=== PATIENT | female | born 1940 | race Caucasian/White ===

== ENCOUNTER 2020-05-21 08:26 | Outpatient (CLI) | payer MEDICARE, SELFPAY | END 2020-05-21 08:27 | disposition home or self-care (01) | LOC: ANHCOVIDVC 08:26 | PROVIDERS: PCP Internal Medicine | DX: Z23 Encounter for immunization (principal) | CPT/HCPCS: 0001A; 91300 ==

== ENCOUNTER 2020-06-11 08:29 | Outpatient (CLI) | payer MEDICARE, SELFPAY | END 2020-06-11 08:30 | disposition home or self-care (01) | LOC: ANHCOVIDVC 08:29 | PROVIDERS: PCP Internal Medicine | DX: Z23 Encounter for immunization (principal) | CPT/HCPCS: 0002A; 91300 ==

== ENCOUNTER 2020-12-31 15:14 | Emergency (ER) | payer MEDICARE, SELFPAY ==
--- NOTE | ~2020-12-31 | CT_ITS ---
EXAMINATION: CT facial & cervical spine wo DATE: 12/31/2020 17:25 INDICATION: Head injury TECHNIQUE: Computed tomography (CT) of the maxillofacial region and cervical spine was performed with out intravenous contrast. The dose-length product (DLP) was 462.34 mGy-cm. Automated exposure control and iterative reconstruction technique were employed. COMPARISON: None FINDINGS: MAXILLOFACIAL CT: There is soft tissue swelling of the frontal scalp. No facial fracture is identified. The globes and orbits are intact. CERVICAL SPINE CT: There is no fracture. There are 2 mm of anterolisthesis of C2 on C3 and C3 on C4. The vertebral body heights are maintained. There is severe loss of intervertebral disc space height from C4-5 through C6 -7. Small degenerative osteophytes project from the anterior endplates of multiple vertebral bodies. The odontoid is intact. There is moderate multilevel facet and uncovertebral joint osteoarthritis. IMPRESSION: 1. Frontal scalp swelling without acute abnormality of the facial bones. 2. Severe cervical spondylosis without acute findings. Reviewed, dictated and finalized at location A.
--- NOTE | ~2020-12-31 | XR_ITS ---
EXAMINATION: XR knee LT min 4V DATE: 12/31/2020 15:38 INDICATION: Left knee pain TECHNIQUE: Four views of the left knee were obtained. COMPARISON: None. FINDINGS: Alignment is normal. No fracture or osteochondral lesion. There are changes of total knee a rthroplasty. There is no knee joint effusion. Calcified atherosclerosis is noted. There is anterior s oft tissue swelling of the knee. IMPRESSION: 1. Soft tissue swelling without acute osseous abnormality. Reviewed, dictated and finalized at location A.
--- NOTE | ~2020-12-31 | CT_ITS ---
EXAMINATION: CT brain wo con INDICATION: Head injury COMPARISON: None TECHNIQUE: Standard unenhanced head CT. The dose-length product (DLP) was 605.33 mGy-cm. The mA was a djusted according to patient size. Iterative reconstruction technique was employed. FINDINGS: There is no acute intraparenchymal hemorrhage. No evidence of mass lesion. No evidence of a cute infarction. There is mild periventricular and subcortical hypodensity probably related to small vessel ischemic disease. There is mild prominence of the sulci and ventricles related to cerebral atr ophy. Intracranial calcified cerebral atherosclerosis is noted. There are no extra-axial collections. There is no mass effect or midline shift. The orbits are unremarkable. There is soft tissue swelling of the frontal scalp. The visualized sinuses and mastoid air cells are well aerated. IMPRESSION: 1. Frontal scalp soft tissue swelling without acute intracranial abnormality. 2. Age related findings. Reviewed, dictated and finalized at location A.
[2020-12-31 15:19] VITALS: BP 162/89; PULSE 79; RESP 14; TEMP 36.3; O2SAT 99
--- NOTE | 2020-12-31 18:40 | ED.FALL ---
HPI - Fall General Chief Complaint: Fall Stated Complaint: fall/hi Time Seen by Provider: 12/31/20 15:57 Source: patient Mode of arrival: ambulatory Limitations: no limitations History of Present Illness HPI Narrative: Patient presents with chief complaint of pain, swelling and bruising to the frontal aspect of her forehead and the bridge of her nose and left knee that she sustained after tripping and falling on uneven cement while walking outside. Patient denies of consciousness, changes to her vision or hearing, drainage from any of her orifices. Patient reports that she did have an intense headache but reports it has improved slightly. Patient reports the tenderness of the frontal aspect of her head is present along with swelling and bruising. She denies any neck pain. She denies any abdominal or chest tenderness or injury. She reports discomfort to the anterior aspect of her left knee. She denies any other injuries or concerns. Patient denies being on blood thinners other than a baby aspirin daily Related Data Home Medications Medication Instructions Recorded Confirmed aspirin 81 mg tablet,delayed 81 mg PO DAILY 02/14/19 09/05/20 release biotin 10 mg tablet 10 mg PO DAILY 02/14/19 09/05/20 cartilage 40 mg-collagen II-boron tablet PO 02/14/19 09/05/20 5 mg-hyaluronate sod 3.3 mg tablet cholecalciferol (vitamin D3) 25 1,000 unit PO DAILY 02/14/19 09/05/20 mcg (1,000 unit) capsule krill oil 500 mg capsule mg PO 02/14/19 09/05/20 mecobalamin (vitamin B12) 1,000 1,000 mcg SUBLINGUAL DAILY 02/14/19 09/05/20 mcg disintegrating tablet,sublingual vitamin E (dl, acetate) 180 mg 400 unit PO DAILY 02/14/19 09/05/20 (400 unit) capsule magnesium oxide 400 mg (241.3 mg 400 mg PO DAILY tablet 02/29/20 09/05/20 magnesium) tablet ezetimibe mg 12/31/20 12/31/20 latanoprost drp 12/31/20 levothyroxine 12/31/20 losartan-hydrochlorothiazide tablet 12/31/20 metformin mg 12/31/20 pravastatin 12/31/20 Allergies Allergy/AdvReac Type Severity Reaction Status Date / Time propoxyphene Allergy Severe PT. STATES Verified 12/31/20 16:18 MAKES HE DIZZY--UNSTEADY Review of Systems Review of Systems: CONSTITUTIONAL: Denies fever, chills, or sweats. EYES: Denies visual changes, redness, or discharge. ENT: Denies rhinorrhea, congestion, sore throat, or otalgia. CARDIOVASCULAR: Denies chest pain, palpitations, or edema. RESPIRATORY: Denies cough or dyspnea. GASTROINTESTINAL: Denies abdominal pain, nausea, vomiting, or diarrhea. GENITOURINARY: Denies dysuria or hematuria. SKIN: Denies rash or itching. MUSCULOSKELETAL: Reports facial trauma and left knee pain denies back pain, joint pain, or myalgia. NEUROLOGIC: Denies headache, numbness, dizziness, or weakness. PSYCHIATRIC: Denies anxiety or depression. FORMERLY [facility], [facility] Family History Family History Mother Family history of osteoporosis Hypertension Family history of congestive heart failure, Onset Age: 87 Patient's mother is Father Depression Hypertension Family history of malignant neoplasm Family history of diabetes mellitus in first degree relative Patient's father is Other Carcinoma of colon Family history of cardiovascular disease Social History Social History Smoking status: Former smoker Second hand tobacco smoke exposure: No Smoking end date: 03/16/77 Alcohol intake: current Exam Narrative: GENERAL: Well-appearing, well-nourished, and in no acute distress. HEAD: Edema and swelling to the frontal right aspect of the patient's face. Patient also has contusion to the superior aspect of the right orbit down into the bridge of the nose. No open lacerations noted. EYES: PERRLA and EOMI. ENT: Nares clear, no rhinorrhea or epistaxis. Mucous membranes moist. Oropharynx without tonsillar hypertro
== END 2020-12-31 18:20 | disposition home or self-care (01) ==
PROVIDERS: Emergency Provider Emergency Medicine; PCP Internal Medicine
DX: S00.83XA Contusion of other part of head, initial encounter (principal); M25.562 Pain in left knee; Z79.82 Long term (current) use of aspirin; Z79.84 Long term (current) use of oral hypoglycemic drugs; Z87.891 Personal history of nicotine dependence; M47.812 Spondylosis without myelopathy or radiculopathy, cervical region; W01.0XXA Fall on same level from slipping, tripping and stumbling without subsequent striking against object, initial encounter
CPT/HCPCS: 70450; 70486; 72125; 73564; 99284

== ENCOUNTER 2022-05-05 13:08 | Outpatient (CLI) | payer MEDICARE, SELFPAY ==
[2022-05-05 15:07] LABS: Influenza A QL RT-PCR Negative (Negative); Influenza B QL RT-PCR Negative (Negative); SARS-CoV-2 RNA PCR Positive
== END 2022-05-05 13:09 | disposition home or self-care (01) ==
PROVIDERS: PCP Internal Medicine; Visit Provider Internal Medicine
DX: U07.1 COVID-19 (principal)
CPT/HCPCS: 87636

== ENCOUNTER 2022-06-08 15:51 | Emergency (ER) | payer MEDICARE, SELFPAY ==
[2022-06-08 16:01] VITALS: BP 154/64; PULSE 84; RESP 16; TEMP 36.5; O2SAT 98
--- NOTE | 2022-06-08 16:25 | ED.GENADULT ---
HPI - General Adult General Chief complaint: Unspecified Stated complaint: right side jaw pain Time Seen by Provider: 06/08/22 16:33 Mode of arrival: ambulatory Limitations: no limitations History of Present Illness HPI narrative: 81-year-old female presents concern for pain on the right side of her neck that radiates down to the shoulder area and to the jaw area. Reports she woke up with middle night with pain. She reports the pain is exacerbated by turning her neck. She denies redness, warmth. She denies trouble swallowing, sore throat, ear pain, dental pain. She denies fever, aches, chills, sweats. She denies injury or trauma. She denies chest pain, shortness of breath, malaise MD complaint: Neck pain Related Data Home Medications Medication Instructions Recorded Confirmed aspirin 81 mg tablet,delayed 81 mg PO DAILY 02/14/19 06/08/22 release (Adult Low Dose Aspirin) biotin 10 mg tablet 10 mg PO DAILY 02/14/19 06/08/22 cartilage 40 mg-collagen II-boron 1 tablet PO DAILY 02/14/19 06/08/22 5 mg-hyaluronate sod 3.3 mg tablet (Move Free Ultra Triple Action (boron)) cholecalciferol (vitamin D3) 25 1,000 unit PO DAILY 02/14/19 06/08/22 mcg (1,000 unit) capsule krill oil 500 mg capsule 500 mg PO DAILY 02/14/19 06/08/22 mecobalamin (vitamin B12) 1,000 1,000 mcg sublingual DAILY 02/14/19 06/08/22 mcg disintegrating tablet,sublingual vitamin E (dl, acetate) 180 mg 400 unit PO DAILY 02/14/19 06/08/22 (400 unit) capsule magnesium oxide 400 mg (241.3 mg 400 mg PO DAILY 02/29/20 06/08/22 magnesium) tablet latanoprost 0.005 % eye drops 1 drp EACH EYE DAILY 12/31/20 06/08/22 Allergies Allergy/AdvReac Type Severity Reaction Status Date / Time propoxyphene Allergy Severe PT. STATES Verified 06/08/22 16:13 MAKES HE DIZZY--UNSTEADY Review of Systems Review of Systems: CONSTITUTIONAL: Denies malaise, chills, sweats, or fever. EYES: Denies visual changes, redness, or discharge. ENT: Denies rhinorrhea, congestion, sinus pain, otalgia or sore throat. CARDIOVASCULAR: Denies chest pain, palpitations, or edema. RESPIRATORY: Denies cough or dyspnea. SKIN: Denies rash or itching, warmth, bruising, swelling, open skin MUSCULOSKELETAL: Reports right-sided neck pain that radiates to the shoulder NEUROLOGIC: Denies numbness, weakness, or headache. All systems reviewed & are unremarkable except as noted in HPI and below PMFSH Family History Family History Mother Family history of osteoporosis Hypertension Family history of congestive heart failure, Onset Age: 87 Patient's mother is Father Depression Hypertension Family history of malignant neoplasm Family history of diabetes mellitus in first degree relative Patient's father is Other Carcinoma of colon Family history of cardiovascular disease Social History Social History (Updated 04/02/22 @ 11:18 by Pedro Tejeda MA) Smoking status: Former smoker Second hand tobacco smoke exposure: No Smoking end date: 03/16/77 Alcohol intake: current Lack of Transportation: No Lack of Food: Never True Current Housing: I Have Housing Concerned About Future Housing: No Difficulty Paying Gas/Electric Bills: No Difficulty Paying for Meds: No Currently Unemployed: No Education: Trade/Vocational Certificate Difficulty w/ Childcare or Family Care: No Comments At time of signature, agree with nursing past medical, surgical, social and family history. There is no relevant family history pertinent to the presenting complaint Exam Narrative: GENERAL: Well-appearing, well-nourished, and in no acute distress. HEAD: Normocephalic, atraumatic. EYES: PERRLA, sclera clear, and EOMI. No nystagmus. ENT: Nares clear, turbinates pink, no rhinorrhea or epistaxis. Mucous membranes moist. TM pearly hall with sharp light reflex bilaterally; no tra
== END 2022-06-08 16:54 | disposition home or self-care (01) ==
PROVIDERS: Emergency Provider Nurse Practitioner; PCP Internal Medicine
DX: M54.2 Cervicalgia (principal); Z79.82 Long term (current) use of aspirin; Z87.891 Personal history of nicotine dependence
CPT/HCPCS: 99211; G0463

== ENCOUNTER 2023-05-18 21:31 | Inpatient (IN) | payer MEDICARE, SELFPAY ==
--- NOTE | ~2023-05-18 | XR_ITS ---
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 RESULT: Lines, tubes, and devices: None. Lungs and pleura: Clear. Left lung granuloma. Cardiomediastinal silhouette: Stable. Other: No acute osseous or upper abdominal finding. IMPRESSION: No acute cardiopulmonary process. Reviewed, dictated and finalized at location K. O REPAIRER
--- NOTE | 2023-05-18 21:35 | ECG_ITS ---
Measurements Intervals [place] Rate: 155 P: FL: 0 QRS: -37 QRSD: 128 T: 7 QT: 312 QTc: 502 Interpretive Statements ATRIAL FIBRILLATION WITH RAPID VENTRICULAR RESPONSE VENTRICULAR PREMATURE COMPLEX LEFT AXIS DEVIATION RIGHT BUNDLE BRANCH BLOCK ABNORMAL ECG NO PREVIOUS ECG AVAILABLE FOR COMPARISON Electronically Signed On 05-19-2023 6:43:44 SECURITY SYSTEM [address]LYST [address] Caldwell D.O.
[2023-05-18 21:43] VITALS: BP 111/51; PULSE 147; RESP 16; TEMP 36.4; O2SAT 98
--- NOTE | 2023-05-18 21:47 | ED.ARRPALP ---
HPI - Arrhythmia/Palpitations General Chief Complaint: Arrhythmia/Palpitations Stated Complaint: watch showed hr, 140. felt weak Time Seen by Provider: 05/18/23 21:42 History of Present Illness HPI narrative: Patient is an 82-year-old female who presents to the emergency department this evening complaining of a fast heart rate. Patient states that she was sitting on the couch watching television when she noticed that rate was as high as 140 on her Apple watch. Patient denies any symptoms or pain at this time including any chest pain. She denies any shortness of breath, nausea or vomiting, abdominal pain, dysuria or hematuria. Patient admits that she has not been drinking much water and is wondering if her symptoms are due to dehydration. She denies any history of arrhythmia or atrial fibrillation in the past. Patient does take a baby aspirin daily, no other blood thinner use. Patient admits to history of coronary artery disease and does have stents. There are no other modifying, alleviating, or precipitating factors at this time. Related Data Home Medications Medication Instructions Recorded Confirmed aspirin 81 mg tablet,delayed 81 mg PO DAILY 02/14/19 06/08/22 release (Adult Low Dose Aspirin) biotin 10 mg tablet 10 mg PO DAILY 02/14/19 06/08/22 cartilage 40 mg-collagen II-boron 1 tablet PO DAILY 02/14/19 06/08/22 5 mg-hyaluronate sod 3.3 mg tablet (Move Free Ultra Triple Action (boron)) cholecalciferol (vitamin D3) 25 1,000 unit PO DAILY 02/14/19 06/08/22 mcg (1,000 unit) capsule krill oil 500 mg capsule 500 mg PO DAILY 02/14/19 06/08/22 mecobalamin (vitamin B12) 1,000 1,000 mcg sublingual DAILY 02/14/19 06/08/22 mcg disintegrating tablet,sublingual vitamin E (dl, acetate) 180 mg 400 unit PO DAILY 02/14/19 06/08/22 (400 unit) capsule magnesium oxide 400 mg (241.3 mg 400 mg PO DAILY 02/29/20 06/08/22 magnesium) tablet latanoprost 0.005 % eye drops 1 drp EACH EYE DAILY 12/31/20 06/08/22 Allergies Allergy/AdvReac Type Severity Reaction Status Date / Time propoxyphene Allergy Severe PT. STATES Verified 12/01/22 09:56 MAKES HE DIZZY--UNSTEADY Review of Systems Review of Systems: All systems are reviewed and are negative unless stated otherwise in the HPI. PMFSH Family History Family History Mother Family history of osteoporosis Hypertension Family history of congestive heart failure, Onset Age: 87 Patient's mother is Father Depression Hypertension Family history of malignant neoplasm Family history of diabetes mellitus in first degree relative Patient's father is Other Carcinoma of colon Family history of cardiovascular disease Social History Social History Smoking status: Former smoker Second hand tobacco smoke exposure: No Smoking end date: 03/16/77 Alcohol intake: current Lack of Transportation: No Lack of Food: Never True Current Housing: I Have Housing Concerned About Future Housing: No Difficulty Paying Gas/Electric Bills: No Difficulty Paying for Meds: No Currently Unemployed: No Education: Trade/Vocational Certificate Difficulty w/ Childcare or Family Care: No Exam Narrative: General: Alert, awake, afebrile, in no acute distress. HEENT: PERRL, no rhinorrhea, no post nasal drip, oropharynx clear. Neck: Trachea midline, no JVD, no lymphadenopathy. Cardiovascular: Tachycardic with an irregular rhythm, no murmurs, rubs or gallops, no peripheral edema. Respiratory: Clear to auscultation bilaterally, no tachypnea, no wheezing, no rhonchi, no rubs, no respiratory distress. Abdomen: Soft, nontender, nondistended, no rebound, no guarding, no peritoneal signs. Musculoskeletal: No joint swelling or deformity, normal muscle tone. Skin: No rashes or petechia, no signs of infection. Ps
[2023-05-18 22:12] LABS: Basophils Percent Auto 0.4 % (0.2-1.2); Eosinophils Absolute Auto 0.1 K/mm3 (0-0.3); Hematocrit 40.3 % (37.0-47.0); Hemoglobin 12.3 g/dL (12.0-15.0); Immature Granulocyte Absolute 0.04 K/mm3 (0.00-0.031); Immature Granulocyte Percent A 0.4 % (0-0.5); Lymphocytes Absolute Auto 1.38 K/mm3 (0.9-3.2); Mean Corpuscular HGB Conc 30.5 g/dl (32-36); Mean Corpuscular Hemoglobin 28.7 pg (26-34); Mean Corpuscular Volume 94.2 fl (80-100); Mean Platelet Volume 11.4 fl (7.4-10.4); Monocytes Absolute Auto 0.7 K/mm3 (0.1-0.6); Monocytes Percent Auto 7.9 % (2.6-8.5); Neutrophils Absolute Auto 6.9 K/mm3 (1.3-6.7); Neutrophils Percent Auto 75.3 % (45.5-73.1); Platelet Count Result 262 k/mm3 (150-375); Red Blood Count 4.28 M/mm3 (4.2-5.4); Red Cell Distribution Width 15.2 % (11.5-14.5); White Blood Count 9.2 K/mm3 (4.5-10.0)
[2023-05-18] MEDS: SODIUM CHLORIDE 0.9% IV 1,000 ML 999 ML IV CONT (22:14)
[2023-05-18 22:22] LABS: Prothrombin Time 13.3 Seconds (11.1-14.7)
[2023-05-18 22:24] LABS: Alanine Aminotransferase 18 U/L (6-35); Albumin Level 4.5 g/dL (3.5-5.1); Alkaline Phosphatase 66 U/L (38-126); Anion Gap 10 mmol/L (8-16); Aspartate Amino Transferase 29 U/L (14-36); Bilirubin,Total 0.6 mg/dL (0.2-1.3); Blood Urea Nitrogen 35 mg/dL (7-17); Calcium 9.7 mg/dL (8.4-10.2); Carbon Dioxide 26 mmol/L (22-30); Chloride 101 mmol/L (98-107); Estimated CRCL calculation 29 ml/min; Estimated Glomerular Filt Rate 36; Glucose 165 mg/dL (65-110); Lipase 810 U/L (23-300); Partial Thromboplastin Time 32.9 SECONDS (22.3-36.8); Potassium 4.5 mmol/L (3.4-5.0); Sodium 137 mmol/L (137-145)
[2023-05-18 22:25] LABS: Magnesium 2.1 mg/dL (1.6-2.3)
[2023-05-18 22:36] LABS: Troponin I 0.021 ng/mL (0.000-0.034)
[2023-05-18 22:49] LABS: Influenza A QL RT-PCR Negative (Negative); Influenza B QL RT-PCR Negative (Negative); SARS-CoV-2 RNA PCR Negative (Negative)
[2023-05-18 22:57] VITALS: BP 145/85; PULSE 147
[2023-05-18] MEDS: dilTIAZem HCl INJ 25 MG/5 ML VIAL 20 MG IV PUSH (22:57)
[2023-05-18] MEDS: dilTIAZem 100 MG/100 ML 100 MG/100 ML BAG IV CONT (22:57)
--- NOTE | 2023-05-18 23:19 | ECG_ITS ---
Measurements Intervals [place] Rate: 89 P: 84 DE: 174 QRS: -23 QRSD: 134 T: 34 QT: 405 QTc: 493 Interpretive Statements SINUS RHYTHM WITH SINUS ARRHYTHMIA RIGHT BUNDLE BRANCH BLOCK BASELINE ARTIFACT- I, II, III, AVR, AVL, AVF, V4-V6 ABNORMAL ECG COMPARED TO ECG 05/18/2023 21:41:05 SINUS RHYTHM NOW PRESENT SINUS ARRHYTHMIA NOW PRESENT Electronically Signed On 05-19-2023 6:48:[address] Caldwell D.O.
[2023-05-19] VITALS (7 sets, daily range): BP systolic 111–148; BP diastolic 49–58; PULSE 74–99; RESP 15–20; TEMP 36.4–36.9; O2SAT 97–100
--- NOTE | 2023-05-19 | ECHO_ITS ---
Patient Info Name: Flakita Abdi Age: 82 years : 1940 Gender: Female Ht: 61 in Wt: 217 lbs BSA: 2.11 m2 HR: 74 bpm BP: 147 / 58 mmHg Technical Quality: Fair Exam Date: 05/19/2023 7:45 AM Exam Location: Echo Lab Patient Status: Inpatient Admit Date: 05/19/2023 Staff Ordering Physician: Sadia Lovett MD Restorative Rehab Aide: Janee Ramírez RDCS Attending Provider: Sadia Lovett MD Exam Type: CA echo dop color flow w con Study Info Indications - atrial flutter Complete two-dimensional, color flow and Doppler transthoracic echocardiogram is performed with contrast to opacify the left ventricle and to improve the deliniation of the left ventricle endocardial borders. Contrast/Agitated Saline Contrast/Ag. Saline: Definity Amount: 3.00 ml Administered By: Janee Ramírez RDCS Existing IV Access: Yes IV Access Condition: patent with no signs of infiltration Summary 1. Definity contrast administered improved wall motion interpretation. 2. Left ventricular chamber dimension is normal. 3. Left ventricular systolic function is hyperdynamic, estimated at >70%. 4. The left ventricular diastolic function is abnormal. 5. E/e' 16 is elevated. 6. Left atrial chamber dimension is mildly enlarged. 7. There is moderate aortic valve sclerosis. 8. There is mild aortic valve stenosis with a peak velocity of 146.26 cm/s, mean gradient of 4 mmHg, and aortic valve area of 1.82 cm2. 9. The mitral valve has mildly calcified leaflets and moderately calcified annulus. 10. There is trace mitral valve regurgitation. 11. No pulmonary hypertension, estimated pulmonary arterial systolic pressure is 36 mmHg. Left Ventricle E/e' 16 is elevated. Definity contrast administered improved wall motion interpretation. Left ventricular chamber dimension is normal. Left ventricular systolic function is hyperdynamic, estimated at >70%. The left ventricular diastolic function is abnormal. Right Ventricle Right ventricular systolic function is normal and with normal TAPSE 2.2 cm. Right ventricular chamber dimension is normal. Left Atria Left atrial chamber dimension is mildly enlarged. Right Atria Right atrial chamber dimension is normal. Aortic Valve The aortic valve is trileaflet. There is moderate aortic valve sclerosis. There is mild aortic valve stenosis with a peak velocity of 146.26 cm/s, mean gradient of 4 mmHg, and aortic valve area of 1.82 cm2. There is no aortic valve regurgitation. Pulmonic Valve There is no pulmonic regurgitation. Mitral Valve The mitral valve has mildly calcified leaflets and moderately calcified annulus. There is no mitral valve stenosis. There is trace mitral valve regurgitation. Tricuspid Valve There is no tricuspid valve regurgitation. No pulmonary hypertension, estimated pulmonary arterial systolic pressure is 36 mmHg. Pericardium/Pleural There is no pericardial effusion. Inferior Vena Cava Normal inferior vena cava with >50% collapse upon inspiration consistent with normal right atrial pressure, 5 mmHg. Aorta The aortic root size at the sinus of Valsalva is normal. Left Ventricular Outflow Tract Name Value Normal LVOT 2D LVOT Diameter 1.96 cm LVOT Doppler
--- NOTE | 2023-05-19 00:16 | ECG_ITS ---
Measurements Intervals [place] Rate: 85 P: 78 NV: 169 QRS: -46 QRSD: 134 T: 27 QT: 400 QTc: 476 Interpretive Statements SINUS RHYTHM ATRIAL PREMATURE COMPLEX RIGHT BUNDLE BRANCH BLOCK LEFT ANTERIOR FASCICULAR BLOCK BASELINE ARTIFACT- I, II, III, AVR, AVL, AVF ABNORMAL ECG COMPARED TO ECG 05/18/2023 23:38:46 NO SIGNIFICANT CHANGES Electronically Signed On 05-20-2023 16:49:32 PEDIATRIC ANESTHESIOLOGIST by Lane Caldwell D.O.
[2023-05-19 01:33] LABS: Troponin I 0.047 ng/mL (0.000-0.034)
[2023-05-19 02:16] LABS: RSV RNA, RT-PCR Negative (Negative)
[2023-05-19 02:34] LABS: Appearance Urine Clear (Clear); Bacteria Urine None Seen /hpf; Bilirubin Urine Negative (Negative); Blood Urine Negative (Negative); Color Urine Yellow (Yellow); Glucose Urine UA Trace mg/dL (Negative); Ketones Urine Negative (Negative); Leukocyte Esterase Ur 2+ LEU/UL (Negative); Nitrate Urine Negative (Negative); Non Pathogenic Casts 0-2; Protein Urine Negative (Negative); RBC Urine 0-2 /hpf (0-2); Specific Grav Ur 1.017 (1.001-1.035); Squamous Epithelial Cell Urine None seen /hpf (Few); Urobilinogen Urine 0.2 mg/dL (<2.0); pH Urine 5.5 (5.0-9.0)
[2023-05-19 02:40] LABS: Add Urine Microscopic? YES
--- NOTE | 2023-05-19 03:32 | ADMGEN ---
0315 This patient, Flakita Abdi, was admitted to IMU Room 213-01. Patient/family oriented to hospital policies and general routines including ID bracelet, bed and alarms, visiting hours, pain management, procedures, bathroom and other care routines, personal items, smoking policy, room service/diet, and visiting hours. Information on how to activate the Rapid Response Team has been discussed. Patient/Family are encouraged to report perceived risks to care and to ask questions if they do not understand what they are told or what they should do.
[2023-05-19] MEDS: LATANOPROST 0.005% OP SOLN 2.5 ML BTL 1 DROP EACH EYE (05:34)
[2023-05-19] MEDS: ENOXAPARIN 100 MG/ML SYRINGE 98 MG SUB-Q (05:35)
[2023-05-19 07:36] LABS: Troponin I 0.095 ng/mL (0.000-0.034)
[2023-05-19] MEDS: PERFLUTREN LIPID MICROSPHERES 1.5 ML VIAL DILUTED TO 10 ML TOTAL VOLUME IV PUSH (08:18)
[2023-05-19] MEDS: LOSARTAN POTASSIUM 100 MG TABLET PO (09:37)
[2023-05-19] MEDS: hydroCHLOROthiazide 12.5 MG CAPSULE PO (09:37)
[2023-05-19 09:40] LABS: Hemoglobin A1C 7.1 % (<5.7)
--- NOTE | 2023-05-19 09:40 | IVDEFINITY ---
Prior to administration of IV Definity the patient was educated on the risks and benefits of the imaging enhancing agent including potential adverse side effects. The patient verbalized understanding. Allergies were verified. No exclusion criteria were identified and at least one of the following inclusion criteria were met: 1) physician request, 2) patient technically difficult to image (per the [place] [employer]chocardi[employer] guidelines of two or more segments not discernable within the apical view), or 3) questionable left ventricular function. ?
[2023-05-19 12:02] LABS: Glucose Point of Care 264 mg/dl (65-105)
[2023-05-19] MEDS: INSULIN ASPART (*BKC) 100 UNITS/ML SUB-Q (12:13)
--- NOTE | 2023-05-19 13:52 | PM.CNCAR ---
Assessment and Plan Assessment and plan (1) Paroxysmal atrial fibrillation with RVR: Code(s): I48.0 - Paroxysmal atrial fibrillation Status: Acute Assessment and Plan: In the ER, she was noted to be in atrial fibrillation with RVR. She was started on Diltiazem drip and has converted to sinus rhythm overnight and remains in sinus rhythm. TSH level normal. Echocardiogram done 05/18 shows LVEF >70%, mildly enlarged LA, mild , trace MR. This is a new diagnosis of atrial fibrillation for the patient. Discussed the diagnosis with the patient, management/treatment steps, etc. Since patient remains in sinus rhythm, will stop Diltiazem drip and start PO Diltiazem. Anticoagulation for stroke prophylaxis is indicated given [id number] of 6 for age, gender, HTN, DM, vascular disease. Discussed indication for anticoagulation with the patient, and risks vs benefits. Patient agreeable, will start Eliquis 5mg BID. Recommend outpatient sleep study to evaluate for PHILLIP. Patient to follow up with her primary architect internship after hospital discharge. (2) Elevated troponin: Code(s): R79.89 - Other specified abnormal findings of blood chemistry Status: Acute Assessment and Plan: Likely due to demand ischemia from AFIB with RVR. Does not appear to be an acute coronary syndrome. (3) Atherosclerotic heart disease of [place] coronary artery without angina pectoris: Code(s): I25.10 - Atherosclerotic heart disease of [place] coronary artery without angina pectoris Status: Acute Assessment and Plan: Continue ASA, statin (4) Essential (primary) hypertension: Code(s): I10 - Essential (primary) hypertension Status: Acute Assessment and Plan: Continue home antihypertensives. (5) Type 2 diabetes mellitus: Code(s): E11.9 - Type 2 diabetes mellitus without complications Status: Acute Assessment and Plan: Management as per primary team. (6) Hyperlipidemia: Code(s): E78.5 - Hyperlipidemia, unspecified Status: Acute Assessment and Plan: Continue statin. Plan Okay to discharge home from my standpoint. Recommendations and plan discussed with Hospitalist. History of Present Illness History of Present Illness Consult date/time: 05/19/23 13:52 Requesting physician: Tiffany Veronica MD Consult reason: atrial fibrillation Reason For Visit: A FIB RVR Narrative: We are consulted for atrial fibrillation with RVR. This is an 82 year old female with coronary artery disease s/p prior intervention, hypertension, diabetes, history of paroxysmal SVT who presented from home after her Apple Watch showed her heart rates to be in the 140s. She was watching tv at that time and felt tingling sensation in her arms. In the ER, she was noted to be in atrial fibrillation with RVR. She was started on Diltiazem drip and has converted to sinus rhythm overnight and remains in sinus rhythm. She is otherwise feeling well. Her primary architect internship is Dr. Bashir at [employer]. Review of Systems Review of Systems: All systems reviewed & are unremarkable except as noted in HPI and below (HPI) [facility]LY [facility] Family History Family History Mother Family history of osteoporosis Hypertension Family history of congestive heart failure, Onset Age: 87 Patient's mother is Father Depression Hypertension Family history of malignant neoplasm Family history of diabetes mellitus in first degree relative Patient's father is Other Carcinoma of colon Family history of cardiovascular disease Social History Social History Smoking status: Former smoker Second hand tobacco smoke exposure: No Smoking end date: 03/16/77 Alcohol intake: current Substance use type: does not use Do You Feel Safe in your Home?: Yes Lack of Transp
--- NOTE | 2023-05-19 14:08 | PM.DS ---
DS: Admitting Diagnosis Discharge Date 05/18 Admitting Diagnosis AF + elevated troponin DS: Discharge Diagnosis Discharge Diagnosis (1) Elevated troponin: Code(s): R79.89 - Other specified abnormal findings of blood chemistry Status: Acute Assessment and Plan: Likely due to demand ischemia from AFIB with RVR. Does not appear to be an acute coronary syndrome. (2) Paroxysmal atrial fibrillation with RVR: Code(s): I48.0 - Paroxysmal atrial fibrillation Status: Acute Assessment and Plan: (1) Paroxysmal atrial fibrillation with RVR: ?Code(s): I48.0 - Paroxysmal atrial fibrillation ?Status:?Acute ?Assessment and Plan: In the ER, she was noted to be in atrial fibrillation with RVR. She was started on Diltiazem drip and has converted to sinus rhythm overnight and remains in sinus rhythm. TSH level normal. Echocardiogram done 05/18 shows LVEF >70%, mildly enlarged LA, mild , trace MR. This is a new diagnosis of atrial fibrillation for the patient. Discussed the diagnosis with the patient, management/treatment steps, etc. Since patient remains in sinus rhythm, will stop Diltiazem drip and start PO Diltiazem. Anticoagulation for stroke prophylaxis is indicated given [id number] of 6 for age, gender, HTN, DM, vascular disease. Discussed indication for anticoagulation with the patient, and risks vs benefits. Patient agreeable, will start Eliquis 5mg BID. Pt seen and examined back in NSR ok to DC as per cardiology MD. 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 (3) Atherosclerotic heart disease of [place] coronary artery without angina pectoris: ?Code(s): I25.10 - Atherosclerotic heart disease of [place] coronary artery without angina pectoris ?Status:?Acute ?Assessment and Plan: Continue ASA, statin (4) Essential (primary) hypertension: ?Code(s): I10 - Essential (primary) hypertension ?Status:?Acute ?Assessment and Plan: Continue home antihypertensives. (5) Type 2 diabetes mellitus: ?Code(s): E11.9 - Type 2 diabetes mellitus without complications ?Status:?Acute ?Assessment and Plan: Management as per primary team. (6) Hyperlipidemia: ?Code(s): E78.5 - Hyperlipidemia, unspecified ?Status:?Acute ?Assessment and Plan: Continue statin. DS: Summary Hospital Course Hospital Course: In the ER, she was noted to be in atrial fibrillation with RVR. She was started on Diltiazem drip and has converted to sinus rhythm overnight and remains in sinus rhythm. TSH level normal. Echocardiogram done 05/18 shows LVEF >70%, mildly enlarged LA, mild , trace MR. This is a new diagnosis of atrial fibrillation for the patient. Discussed the diagnosis with the patient, management/treatment steps, etc. Since patient remains in sinus rhythm, will stop Diltiazem drip and start PO Diltiazem. Anticoagulation for stroke prophylaxis is indicated given [id number] of 6 for age, gender, HTN, DM, vascular disease. Discussed indication for anticoagulation with the patient, and risks vs benefits. Patient agreeable, will start Eliquis 5mg BID. Time Spent with Patient Time attestation: Total time spent providing and/or coordinating discharge services:40 minutes on day of DC Exam Const: General: comfortable and no acute distress Other: Obese female HENMT: Mouth: Yes moist mucous membranes Eyes: General: appearance normal, both eyes and all related structures Sclera: sclerae normal Neck: Neck: supple Resp: Effort & Inspection: normal respiratory effort Auscultation: clear to auscultation bilaterally Cardio: Rate: regular rate Rhythm: regular rhythm Heart sounds: no murmurs Skin: General skin exam: normal color Neuro: Speech: normal speech Psych: Mental Status: mental status grossly normal Affect: normal affect DS: Data Data Completed and Pending Labs on day of discharge: Labs from last 24 arnol
[2023-05-19] MEDS: dilTIAZem HCL CD 180 MG CAP.24HR PO (15:58)
[2023-05-19] MEDS: APIXABAN 5 MG TABLET PO (15:59)
== END 2023-05-19 16:04 | disposition home or self-care (01) | DRG 309 ==
LOC: ANHED 23:06 → ANHIMU 05-19 04:27
PROVIDERS: Admitting Provider General Practice; Emergency Provider Emergency Medicine; PCP Internal Medicine; Visit Provider Family Medicine
DX: I48.0 Paroxysmal atrial fibrillation (principal); I24.89 Other forms of acute ischemic heart disease; I25.10 Atherosclerotic heart disease of native coronary artery without angina pectoris; I10 Essential (primary) hypertension; E11.9 Type 2 diabetes mellitus without complications; Z79.82 Long term (current) use of aspirin; Z87.891 Personal history of nicotine dependence
CPT/HCPCS: 36415; 71045; 80053; 81001; 82948; 83036; 83690; 83735; 84443; 84484; 85025; 85610; 85730; 87086; 87088; 87634; 87636; 93005; 96375; 99285; A9270; C8929; J0696; J1650; J1815; J7030; Q9957

== ENCOUNTER 2023-07-29 22:54 | Observation (INO) | payer MEDICARE, SELFPAY ==
--- NOTE | ~2023-07-29 | XR_ITS ---
EXAMINATION: XR chest 1V portable DATE: 07/29/2023 23:15 INDICATION: Palpitations. TECHNIQUE: A single frontal view of the chest was obtained. COMPARISON: Chest 2 view 05/18/2023 FINDINGS: A calcified left lung nodule is consistent with old granulomatous disease. No pleural effus ion or pneumothorax. The heart size is normal. IMPRESSION: 1. No acute cardiopulmonary disease. Reviewed, dictated and finalized at location E.
[2023-07-29 23:00] VITALS: BP 163/102; PULSE 141; RESP 16; TEMP 36.3; O2SAT 98
--- NOTE | 2023-07-29 23:00 | ECG_ITS ---
SEE SCANNED COPY FOR CONFIRMED REPORT MTDD
[2023-07-29 23:19] VITALS: BP 151/73; PULSE 142; RESP 18; O2SAT 98
[2023-07-29 23:26] VITALS: BP 151/73; PULSE 142
[2023-07-29] MEDS: dilTIAZem 100 MG/100 ML 100 MG/100 ML BAG IV CONT (23:26)
[2023-07-29] MEDS: dilTIAZem HCl INJ 25 MG/5 ML VIAL 10 MG IV PUSH (23:26)
[2023-07-29 23:28] LABS: Basophils Percent Auto 0.3 % (0.2-1.2); Eosinophils Absolute Auto 0.1 K/mm3 (0-0.3); Eosinophils Percent Auto 1.7 % (0-4.4); Hematocrit 38.3 % (37.0-47.0); Hemoglobin 12.3 g/dL (12.0-15.0); Immature Granulocyte Absolute 0.02 K/mm3 (0.00-0.031); Immature Granulocyte Percent A 0.3 % (0-0.5); Lymphocytes Absolute Auto 1.17 K/mm3 (0.9-3.2); Lymphocytes Percent Auto 18.5 % (18.3-44.2); Mean Corpuscular HGB Conc 32.1 g/dl (32-36); Mean Corpuscular Hemoglobin 29.6 pg (26-34); Mean Corpuscular Volume 92.1 fl (80-100); Mean Platelet Volume 10.9 fl (7.4-10.4); Monocytes Absolute Auto 0.4 K/mm3 (0.1-0.6); Monocytes Percent Auto 6.9 % (2.6-8.5); Neutrophils Absolute Auto 4.6 K/mm3 (1.3-6.7); Neutrophils Percent Auto 72.3 % (45.5-73.1); Platelet Count Result 241 k/mm3 (150-375); Red Blood Count 4.16 M/mm3 (4.2-5.4); Red Cell Distribution Width 15.4 % (11.5-14.5); White Blood Count 6.3 K/mm3 (4.5-10.0)
[2023-07-29 23:37] LABS: INR 1.2; Prothrombin Time 15.8 Seconds (11.1-14.7)
[2023-07-29 23:38] LABS: Partial Thromboplastin Time 41.8 Seconds (22.3-36.8)
[2023-07-29 23:40] LABS: Alanine Aminotransferase 16 U/L (6-35); Albumin Level 4.5 g/dL (3.5-5.1); Alkaline Phosphatase 66 U/L (38-126); Anion Gap 12 mmol/L (4-12); Aspartate Amino Transferase 27 U/L (14-36); Bilirubin,Total 0.5 mg/dL (0.2-1.3); Blood Urea Nitrogen 35 mg/dL (7-17); Calcium 9.2 mg/dL (8.4-10.2); Carbon Dioxide 23 mmol/L (22-30); Chloride 100 mmol/L (98-107); Estimated CRCL calculation 23 ml/min; Estimated Glomerular Filt Rate 27; Glucose 171 mg/dL (65-110); Magnesium 2.3 mg/dL (1.6-2.3); Potassium 4.3 mmol/L (3.4-5.0); Sodium 135 mmol/L (137-145)
[2023-07-29 23:52] LABS: NT Pro B Type Natriuretic Pept 4530 pg/mL (19.9-100); Troponin I 0.019 ng/mL (0.000-0.034)
[2023-07-30] VITALS (13 sets, daily range): BP systolic 104–143; BP diastolic 41–88; PULSE 68–142; RESP 4–20; TEMP 36.3–36.7; O2SAT 96–98; BMI 44.3
--- NOTE | 2023-07-30 00:09 | PC.NURSE ---
Pt dilt drip increased to 10ml/hour per MD Kay verbal order.
[2023-07-30] MEDS: SODIUM CHLORIDE 0.9% IV 500 ML 999 ML IV CONT (01:00)
[2023-07-30] MEDS: dilTIAZem HCl INJ 25 MG/5 ML VIAL 20 MG IV PUSH (01:00)
[2023-07-30] MEDS: APIXABAN 5 MG TABLET PO (01:00)
[2023-07-30 01:01] LABS: Appearance Urine Clear (Clear); Bacteria Urine None Seen /hpf; Bilirubin Urine Negative (Negative); Blood Urine Negative (Negative); Color Urine Yellow (Yellow); Glucose Urine UA Negative (Negative); Ketones Urine Trace mg/dL (Negative); Leukocyte Esterase Ur 2+ LEU/UL (Negative); Nitrate Urine Negative (Negative); Protein Urine Negative (Negative); RBC Urine 0-2 /hpf (0-2); Specific Grav Ur 1.018 (1.001-1.035); Squamous Epithelial Cell Urine Occasional /hpf (Few)
--- NOTE | 2023-07-30 01:05 | ED.GENADULT ---
HPI - General Adult General Chief complaint: Arrhythmia/Palpitations Stated complaint: increased HR Time Seen by Provider: 07/29/23 23:00 History of Present Illness HPI narrative: Patient 82-year-old female who presents emergency department chief complaint of palpitations. Patient reports he has prior history atrial fibrillation reports he is on Eliquis and Cardizem patient reports that over the last several days she has noticed that her heart rates been intermittently fast and reports she had little bit of shortness of breath and tightness in her chest. Patient reports she may have missed a few doses of her Cardizem patient reports that currently she feels as though she is been exercising but has not been physically exercising. Related Data Home Medications Medication Instructions Recorded Confirmed aspirin 81 mg tablet,delayed 81 mg PO DAILY 02/14/19 07/07/23 release (Adult Low Dose Aspirin) cartilage 40 mg-collagen II-boron 1 tablet PO DAILY 02/14/19 07/07/23 5 mg-hyaluronate sod 3.3 mg tablet (Move Free Ultra Triple Action (boron)) cholecalciferol (vitamin D3) 25 2,000 unit PO DAILY 02/14/19 07/07/23 mcg (1,000 unit) capsule krill oil 500 mg capsule 500 mg PO DAILY 02/14/19 07/07/23 mecobalamin (vitamin B12) 1,000 1,000 mcg PO DAILY 02/14/19 07/07/23 mcg disintegrating tablet,sublingual vitamin E (dl, acetate) 180 mg 400 unit PO DAILY 02/14/19 07/07/23 (400 unit) capsule magnesium oxide 400 mg (241.3 mg 400 mg PO DAILY 02/29/20 07/07/23 magnesium) tablet latanoprost 0.005 % eye drops 1 drp EACH EYE DAILY 12/31/20 07/07/23 coenzyme Q10 100 mg capsule 100 mg PO DAILY 05/19/23 07/07/23 (CoQ-10) Allergies Allergy/AdvReac Type Severity Reaction Status Date / Time propoxyphene Allergy Severe PT. STATES Verified 07/07/23 08:11 MAKES HE DIZZY--UNSTEADY Review of Systems Review of Systems: A 10 system review of systems was completed on the patient and is negative except for what is stated in the HPI. Nursing and ancillary documentation was reviewed. [facility] Family History Family History Mother Family history of osteoporosis Hypertension Family history of congestive heart failure, Onset Age: 87 Patient's mother is Father Depression Hypertension Family history of malignant neoplasm Family history of diabetes mellitus in first degree relative Patient's father is Other Carcinoma of colon Family history of cardiovascular disease Social History Social History Smoking status: Former smoker Second hand tobacco smoke exposure: No Smoking end date: 03/16/77 Alcohol intake: current Substance use type: does not use Do You Feel Safe in your Home?: Yes Lack of Transportation: No Lack of Food: Never True Current Housing: I Have Housing Concerned About Future Housing: No Difficulty Paying Gas/Electric Bills: No Difficulty Paying for Meds: No Currently Unemployed: No Education: Decline to Answer Difficulty w/ Childcare or Family Care: No Spiritual care concerns: No Exam Narrative: GENERAL: Well-appearing, well-nourished, and in no acute distress. HEAD: Normocephalic, atraumatic. EYES: PERRLA and EOMI. ENT: Nares clear, no rhinorrhea or epistaxis. Mucous membranes moist. NECK: Supple. CHEST: Clear to auscultation. No respiratory distress. HEART: Irregular tachycardia rate and rhythm. No murmur heard. Normal peripheral pulses. ABDOMEN: Soft, nontender, nondistended, normal active bowel sounds. EXTREMITIES: Normal range of motion. No edema. SKIN: Warm, dry, no rash. NEURO: No focal deficits. Alert and oriented x3. PSYCH: Normal mood and affect. Course Vital Signs Vital signs: Vital Signs Temperature 36.3 C L 07/29/23 23:00 Pulse Rate 141 H 07/29/23 2
[2023-07-30 01:31] LABS: Add Urine Microscopic? YES
--- NOTE | 2023-07-30 02:00 | ADMGEN ---
This patient, Flakita Abdi, was admitted to IMU Room 205-02. Patient/family oriented to hospital policies and general routines including ID bracelet, bed and alarms, visiting hours, pain management, procedures, bathroom and other care routines, personal items, smoking policy, room service/diet, and visiting hours. Information on how to activate the Rapid Response Team has been discussed. Patient/Family are encouraged to report perceived risks to care and to ask questions if they do not understand what they are told or what they should do.
--- NOTE | 2023-07-30 02:30 | PM.IMHP ---
H&P: HPI History of Present Illness Date/Time: 07/30/23 02:30 Chief Complaint: PALPITATIONS Narrative: This is an 82-year-old female with past medical history significant for atrial fibrillation, rate controlled and anticoagulated, hypertension, type diabetes mellitus, DJD, obesity, hypothyroidism. patient comes to the emergency room due to abnormal heart rhythm and heart rate did spotted on her watch this status since Thursday she noticed her heart rate going up to 140's patient denies any chest pain, nausea, vomiting, abdominal pain, fevers, rigors, chills, cough, sputum production, lightheadedness, syncope or near-syncope. patient usually follows up at outside facility. In emergency room patient was found to have atrial fibrillation with rapid ventricular response and started on diltiazem drip. Patient is been placed in observation for further evaluation management and treatment. EXAMINATION: XR chest 1V portable DATE: 07/29/2023 23:15 INDICATION: Palpitations. TECHNIQUE: A single frontal view of the chest was obtained. COMPARISON: Chest 2 view 05/18/2023 FINDINGS: A calcified left lung nodule is consistent with old granulomatous disease. No pleural effusion or pneumothorax. The heart size is normal. IMPRESSION: 1. No acute cardiopulmonary disease. Review of Systems Review of Systems: Abnormal heart rate and rhythm, fast heart rate Constitutional: Constitutional: Denies chills, Denies fatigue, Denies fever(s), Denies malaise, Denies night sweats, Denies poor appetite and Denies weakness Eyes: Eyes: Reports spots in vision ENT: Denies dysphagia, Denies vertigo, Denies dizziness and Denies odynophagia Cardiovascular: Cardiovascular: Denies chest pain, Denies leg edema, Denies radiating jaw, neck or arm pain, Reports palpitations and Denies dyspnea Respiratory: Respiratory: Denies chest congestion and Denies cough Gastrointestinal: Gastrointestinal: Denies abdominal pain, Denies nausea and Denies vomiting Genitourinary: Genitourinary: Denies dysuria Musculoskeletal: Musculoskeletal: Denies myalgias Integumentary/Breasts: Skin/Breast: Denies rash Neurologic: Denies focal weakness and Denies Sensory deficit (Neuro) Psychiatric: Psychiatric: Reports no additional psychiatric complaints and Reports as per HPI Endocrine: Endocrine: Denies cold intolerance, Denies fatigue, Denies flushing, Denies heat intolerance, Denies polyphagia, Denies polydipsia and Denies palpitations Hematologic/Lymphatic: Hematologic/Lymphatic: Reports no additional hematologic/lymphatic complaints and Reports as per HPI Allergic/Immunologic: Allergic/Immunologic: Reports no additional allergic/immunologic complaints and Reports as per HPI [facility] Family History Family History Mother Family history of osteoporosis Hypertension Family history of congestive heart failure, Onset Age: 87 Patient's mother is Father Depression Hypertension Family history of malignant neoplasm Family history of diabetes mellitus in first degree relative Patient's father is Other Carcinoma of colon Family history of cardiovascular disease Social History Social History Smoking status: Former smoker Second hand tobacco smoke exposure: No Smoking end date: 03/16/77 Alcohol intake: current Substance use type: does not use Do You Feel Safe in your Home?: Yes Lack of Transportation: No Lack of Food: Never True Current Housing: I Have Housing Concerned About Future Housing: No Difficulty Paying Gas/Electric Bills: No Difficulty Paying for Meds: No Currently Unemployed: No Education: Decline to Answer Difficulty w/ Childcare or Family Care: No Spiritual care concerns: No Meds Home Medications and Allergies Home Medications Medication Instruc
[2023-07-30 02:48] LABS: Troponin I 0.027 ng/mL (0.000-0.034)
[2023-07-30 05:20] LABS: Troponin I 0.029 ng/mL (0.000-0.034)
[2023-07-30] MEDS: LEVOTHYROXINE SODIUM 88 MCG TABLET PO (05:47)
[2023-07-30] MEDS: ASPIRIN 81 MG ENTERIC TABLET PO (09:07)
[2023-07-30] MEDS: hydroCHLOROthiazide 12.5 MG CAPSULE PO (09:08)
[2023-07-30] MEDS: ATORVASTATIN 40 MG TABLET PO (09:08)
[2023-07-30] MEDS: LOSARTAN POTASSIUM 100 MG TABLET PO (09:08)
[2023-07-30] MEDS: dilTIAZem HCL CD 180 MG CAP.24HR PO (09:08)
[2023-07-30] MEDS: CYANOCOBALAMIN 1,000 MCG TABLET 1000 MCG PO (09:08)
[2023-07-30 09:52] LABS: Glucose Point of Care 245 mg/dl (65-105)
--- NOTE | 2023-07-30 10:55 | PM.CNCAR ---
Assessment and Plan Assessment and plan (1) Paroxysmal atrial fibrillation with RVR: Code(s): I48.0 - Paroxysmal atrial fibrillation Status: Acute Assessment and Plan: Converted back to sinus rhythm 07/29 at 5:30AM. Remains in sinus rhythm. Increase her PO Diltiazem from 180mg to 240mg daily. Continue Eliquis. (2) Atherosclerotic heart disease of [place] coronary artery without angina pectoris: Code(s): I25.10 - Atherosclerotic heart disease of [place] coronary artery without angina pectoris Status: Acute Assessment and Plan: Stable. No anginals symptoms. Continue ASA, statin. (3) Essential (primary) hypertension: Code(s): I10 - Essential (primary) hypertension Status: Acute Assessment and Plan: Stable. Increasing Diltiazem for her atrial fibrillation. Continue other home antihypertensive regimens. (4) Hyperlipidemia: Code(s): E78.5 - Hyperlipidemia, unspecified Status: Acute Assessment and Plan: Continue statin. Plan Okay to discharge home from my standpoint. Recommendations and plan discussed with Hospitalist. Patient states she will call Dr. Bashir's office to make hospital follow up visit with them. History of Present Illness History of Present Illness Consult date/time: 07/30/23 10:55 Requesting physician: Tiffany Veronica MD Consult reason: atrial fibrillation Reason For Visit: Atrial fibrillation with rapid ventricular respons Narrative: We are consulted for AFIB with RVR. This is an 82 year old female with paroxysmal atrial fibrillation on Eliquis, coronary artery disease s/p prior intervention, hypertension, diabetes who presented to [place] [facility] last night with palpitations that have been ongoing since Thursday. In the ER, she was noted to be in atrial fibrillation with RVR. Started on Diltiazem drip. She converted to sinus rhythm this morning at 5:30 AM. She has not missed any doses of Diltiazem at home, and has not missed any doses of Eliquis. She is otherwise feeling well now. Patient thinks she may have been dehydrated this week. She drinks approximately ~32 fluid ounces of water daily. Primary disassembler product is Dr. Bashir at [facility]. Troponins are negative. Her SCr is elevated at 1.8, which is increased from 1.4 (05/2023). CXR is negative. Review of Systems Review of Systems: All systems reviewed & are unremarkable except as noted in HPI and below (HPI) [facility] Family History Family History Mother Family history of osteoporosis Hypertension Family history of congestive heart failure, Onset Age: 87 Patient's mother is Father Depression Hypertension Family history of malignant neoplasm Family history of diabetes mellitus in first degree relative Patient's father is Other Carcinoma of colon Family history of cardiovascular disease Social History Social History Smoking packs per day: 3 Smoking cigarettes per day: 60.0 Years smoked: 19 Smoking pack-years: 57.00 Smoking status: Former smoker Tobacco type: cigarettes Second hand tobacco smoke exposure: No Smoking end date: 03/16/1967 Alcohol intake: current Drinks per week: 1 Substance use: never Substance use type: does not use Do You Feel Safe in your Home?: Yes Lack of Transportation: No Lack of Food: Never True Current Housing: I Have Housing Concerned About Future Housing: No Difficulty Paying Gas/Electric Bills: No Difficulty Paying for Meds: No Currently Unemployed: No Education: Decline to Answer Difficulty w/ Childcare or Family Care: No Spiritual care concerns: No Meds Home Medications and Allergies Home Medications Medication Instructions Recorded Confirmed Type aspirin 81 mg tablet,delayed 81 mg PO DAILY 02/14/19 07/30/23 History release (Adult Low
--- NOTE | 2023-07-30 11:52 | PM.DS ---
DS: Admitting Diagnosis Discharge Date 07/30/2023 Admitting Diagnosis PALPITATIONS DS: Discharge Diagnosis Discharge Diagnosis (1) Atrial fibrillation with rapid ventricular response: Code(s): I48.91 - Unspecified atrial fibrillation Status: Acute Assessment and Plan: pt transitioned off cardizem drip nowon oral cardizem (2) Morbid obesity with BMI of 40.0-44.9, adult: Code(s): E66.01 - Morbid (severe) obesity due to excess calories; Z68.41 - Body mass index [BMI] 40.0-44.9, adult Status: Acute Assessment and Plan: lifestyle and diet modifications (3) Type 2 diabetes mellitus: Code(s): E11.9 - Type 2 diabetes mellitus without complications Status: Acute Assessment and Plan: will hold glipizide and metformin insulin sliding scale as needed (4) Hypertension: Code(s): I10 - Essential (primary) hypertension Status: Acute Assessment and Plan: resume home meds DS: Summary Hospital Course Hospital Course: 82-year-old female with past medical history significant for atrial fibrillation, rate controlled and anticoagulated, hypertension, type diabetes mellitus, DJD, obesity, hypothyroidism. patient comes to the emergency room due to abnormal heart rhythm and heart rate did spotted on her watch this status since Thursday she noticed her heart rate going up to 140's? patient denies any chest pain, nausea, vomiting, abdominal pain, fevers, rigors, chills, cough, sputum production, lightheadedness, syncope or near-syncope. patient usually follows up at outside facility.? In emergency room patient was found to have atrial fibrillation with rapid ventricular response and started on diltiazem drip.? Patient is been placed in observation for further evaluation management and treatment, transitioned to oral ok to DC as per cardiology MD Time Spent with Patient Time attestation: Total time spent providing and/or coordinating discharge services:50 minutes on day of DC Exam Narrative: patient is laying in bed Const: General: comfortable, no acute distress, well developed, alert, awake and obese Nutritional Appearance: obese Orientation/consciousness: patient oriented x3 HENMT: Head: normal to inspection, normocephalic and atraumatic Ears: hearing grossly normal bilaterally Face/Nose/Sinus: normal facial exam Face and sinus: normal facial exam Eyes: General: appearance normal, both eyes and all related structures Pupils: Equal, round and reactive pupils present EOM: EOMs intact bilaterally Neck: Neck: full ROM, no lymphadenopathy and no JVD Thyroid: thyroid normal Lymphatic: no lymphadenopathy noted Resp: Effort & Inspection: normal respiratory effort and able to speak in complete sentences Auscultation: clear to auscultation bilaterally Cardio: Jugular venous distension: no JVD Rate: regular rate Rhythm: abnormal rhythm irregularly irregular Heart sounds: S1 normal heart sound present and S2 normal heart sound present GI: Inspection: [place] present and obesity : General: Yes deferred Skin: Rashes: no rashes Wounds: no wounds Neuro: General: patient oriented x3 and CN's II-XI intact bilaterally Cranial nerves: Yes CN's II-XII intact bilaterally and Yes Equal, round and reactive pupils present Cognition (Neuro): normal cognition Speech: normal speech Gait exam (Neuro): Normal gait present Motor exam (neuro): 5/5 motor strength present throughout Sensory Exam: No Sensory deficit (Neuro) Extrem: General: normal to inspection, full ROM, no joint enlargement and no pedal edema DS: Data Data Completed and Pending Labs on day of discharge: Labs from last 24 hours 07/30/23 07/30/23 07/30/23 09:18 04:38 02:13 WBC RBC Hgb Hct MCV MCH MCHC RDW Plt Count MPV Immature Gran % (Auto) Neut % (Auto) Lymph % (Auto) [place] % (Auto) Eos % (Auto) Baso % (Auto) Lymph # (Auto) [place] # (Au
[2023-07-30 16:26] LABS: Glucose Point of Care 148 mg/dl (65-105)
== END 2023-07-30 13:56 | disposition home or self-care (01) ==
LOC: ANHED 07-30 01:07 → ANHIMU 07-30 03:32
PROVIDERS: Admitting Provider Internal Medicine; Emergency Provider Emergency Medicine; PCP Physician Assistant; Visit Provider Family Medicine
DX: I48.0 Paroxysmal atrial fibrillation (principal); I10 Essential (primary) hypertension; E03.9 Hypothyroidism, unspecified; E11.9 Type 2 diabetes mellitus without complications; I25.10 Atherosclerotic heart disease of native coronary artery without angina pectoris; E78.5 Hyperlipidemia, unspecified; M19.90 Unspecified osteoarthritis, unspecified site; E66.01 Morbid (severe) obesity due to excess calories; Z68.41 Body mass index [BMI] 40.0-44.9, adult; Z79.01 Long term (current) use of anticoagulants; Z79.82 Long term (current) use of aspirin; Z87.891 Personal history of nicotine dependence; Z79.84 Long term (current) use of oral hypoglycemic drugs
CPT/HCPCS: 36415; 71045; 80053; 81001; 82948; 83735; 83880; 84443; 84484; 85025; 85610; 85730; 87086; 87088; 93005; 96365; 96366; 96374; 96376; 99285; A9270; G0378; J7030; J7040

== ENCOUNTER 2023-10-28 15:09 | Inpatient (IN) | payer MEDICARE, SELFPAY ==
[2023-10-28] VITALS (23 sets, daily range): BP systolic 96–152; BP diastolic 49–77; PULSE 63–133; RESP 12–18; TEMP 36.4–36.6; O2SAT 97–100
--- NOTE | ~2023-10-28 | XR_ITS ---
EXAMINATION: XR chest 1V portable 10/28/2023 17:00 INDICATION: Atrial fibrillation PROCEDURE: AP portable chest COMPARISON: 08/14/2005 FINDINGS: The lungs are clear. The cardiomediastinal silhouette is within normal limits. There are no pleural effusions. There is no pneumothorax suspected. IMPRESSION: 1: NO ACUTE CARDIOPULMONARY DISEASE. Reviewed, dictated and finalized at location B.
--- NOTE | 2023-10-28 15:13 | ECG_ITS ---
Test Date: 2023-10-28 15:16:55 Measurements Intervals [place] Rate: 128 P: 0 KS: 0 QRS: 59 QRSD: 138 T: 49 QT: 348 QTc: 509 Interpretive Statements ATRIAL FLUTTER/TACHYCARDIA WITH RAPID VENTRICULAR RESPONSE RIGHT BUNDLE BRANCH BLOCK [120+ ms QRS DURATION, UPRIGHT V1, 40+ ms S IN I/aVL/V4/V5/V6] No previous ECG available for comparison Electronically Signed On 10-29-2023 09:51:20 CDT by Jaylyn Fuller M.D.
--- NOTE | 2023-10-28 16:28 | ED.GENADULT ---
HPI - General Adult General Chief complaint: Arrhythmia/Palpitations Stated complaint: afib Time Seen by Provider: 10/28/23 16:21 Source: patient History of Present Illness HPI narrative: 83 years old white female came to the ED from home with fast heartbeat, started prior to arrival to the emergency room. She denies any chest pain or shortness of breath, just feeling weird and tired. History of atrial fibrillation currently on Eliquis. She denies any fever, chills, nausea, vomiting or shortness of breath or chest pain Related Data Home Medications Medication Instructions Recorded Confirmed aspirin 81 mg tablet,delayed 81 mg PO DAILY 02/14/19 07/30/23 release (Adult Low Dose Aspirin) cartilage 40 mg-collagen II-boron 1 tablet PO DAILY 02/14/19 07/30/23 5 mg-hyaluronate sod 3.3 mg tablet (Move Free Ultra Triple Action (boron)) cholecalciferol (vitamin D3) 25 2,000 unit PO DAILY 02/14/19 07/30/23 mcg (1,000 unit) capsule krill oil 500 mg capsule 500 mg PO DAILY 02/14/19 07/30/23 mecobalamin (vitamin B12) 1,000 1,000 mcg PO DAILY 02/14/19 07/30/23 mcg disintegrating tablet,sublingual vitamin E (dl, acetate) 180 mg 400 unit PO DAILY 02/14/19 07/30/23 (400 unit) capsule magnesium oxide 400 mg (241.3 mg 400 mg PO DAILY 02/29/20 07/30/23 magnesium) tablet latanoprost 0.005 % eye drops 1 drp EACH EYE DAILY 12/31/20 07/30/23 coenzyme Q10 100 mg capsule 300 mg PO DAILY 05/19/23 07/30/23 (CoQ-10) Allergies Allergy/AdvReac Type Severity Reaction Status Date / Time propoxyphene Allergy Severe PT. STATES Verified 07/30/23 02:13 MAKES HE DIZZY--UNSTEADY Review of Systems Review of Systems: All systems reviewed & are unremarkable except as noted in HPI and below PMFSH Past Medical History Medical History (Updated 10/28/23 @ 17:55 by Minerva Pascal, OIL HEATERMAN) Atherosclerotic heart disease of [place] coronary artery without angina pectoris Gastroesophageal reflux disease Hyperlipidemia Hypertension Hypothyroidism Obese Paroxysmal atrial fibrillation with RVR Type 2 diabetes mellitus Family History Family History Mother Family history of osteoporosis Hypertension Family history of congestive heart failure, Onset Age: 87 Patient's mother is Father Depression Hypertension Family history of malignant neoplasm Family history of diabetes mellitus in first degree relative Patient's father is Other Carcinoma of colon Family history of cardiovascular disease Social History Social History Smoking packs per day: 3 Smoking cigarettes per day: 60.0 Years smoked: 19 Smoking pack-years: 57.00 Smoking status: Former smoker Tobacco type: cigarettes Second hand tobacco smoke exposure: No Smoking end date: 03/16/1967 Alcohol intake: current Drinks per week: 1 Substance use: never Substance use type: does not use Do You Feel Safe in your Home?: Yes Lack of Transportation: No Lack of Food: Never True Current Housing: I Have Housing Concerned About Future Housing: No Difficulty Paying Gas/Electric Bills: No Difficulty Paying for Meds: No Currently Unemployed: No Education: Decline to Answer Difficulty w/ Childcare or Family Care: No Spiritual care concerns: No Exam Narrative: General appearance: Well-developed, well-nourished Skin: Normal color Head: Normocephalic, nontraumatic Eyes: Clear conjunctiva ENT: Oropharynx normal, ears normal, nose normal Neck: Supple, nontender Chest and respiratory: Airway patent, no respiratory distress, no accessory muscle use Heart: Tachycardia, irregular irregularity Abdomen: Soft, nontender, no organomegaly, quiet bowel sounds Vascular: Normal peripheral pulses, normal capillary refill. Musculoskeletal: Normal range of motion, nontender back Neurologi
[2023-10-28 16:46] LABS: Basophils Percent Auto 0.4 % (0.2-1.2); Eosinophils Percent Auto 0.2 % (0-4.4); Hematocrit 37.5 % (37.0-47.0); Hemoglobin 11.9 g/dL (12.0-15.0); Immature Granulocyte Absolute 0.03 K/mm3 (0.00-0.031); Immature Granulocyte Percent A 0.4 % (0-0.5); Lymphocytes Absolute Auto 0.89 K/mm3 (0.9-3.2); Lymphocytes Percent Auto 10.6 % (18.3-44.2); Mean Corpuscular HGB Conc 31.7 g/dl (32-36); Mean Corpuscular Hemoglobin 28.7 pg (26-34); Mean Corpuscular Volume 90.6 fl (80-100); Mean Platelet Volume 11.2 fl (7.4-10.4); Monocytes Absolute Auto 0.5 K/mm3 (0.1-0.6); Monocytes Percent Auto 5.5 % (2.6-8.5); Neutrophils Percent Auto 82.9 % (45.5-73.1); Platelet Count Result 320 k/mm3 (150-375); Red Blood Count 4.14 M/mm3 (4.2-5.4); Red Cell Distribution Width 15.2 % (11.5-14.5); White Blood Count 8.4 K/mm3 (4.5-10.0)
[2023-10-28] MEDS: dilTIAZem HCl INJ 25 MG/5 ML VIAL 10 MG IV PUSH ×2 (16:46→21:25)
[2023-10-28 16:54] LABS: Alanine Aminotransferase 17 U/L (6-35); Albumin Level 4.4 g/dL (3.5-5.1); Alkaline Phosphatase 65 U/L (38-126); Anion Gap 12 mmol/L (4-12); Aspartate Amino Transferase 25 U/L (14-36); Bilirubin,Total 0.6 mg/dL (0.2-1.3); Blood Urea Nitrogen 35 mg/dL (7-17); Calcium 9.4 mg/dL (8.4-10.2); Carbon Dioxide 27 mmol/L (22-30); Chloride 96 mmol/L (98-107); Estimated CRCL calculation 25 ml/min; Estimated Glomerular Filt Rate 31; Glucose 184 mg/dL (65-110); INR 1.4; Potassium 4.7 mmol/L (3.4-5.0); Prothrombin Time 17.2 Seconds (11.1-14.7); Sodium 135 mmol/L (137-145)
[2023-10-28 16:55] LABS: Partial Thromboplastin Time 39.2 Seconds (22.3-36.8)
[2023-10-28 17:06] LABS: NT Pro B Type Natriuretic Pept 6170 pg/mL (19.9-100); Troponin I 0.024 ng/mL (0.000-0.034)
[2023-10-28] MEDS: dilTIAZem 100 MG/100 ML 100 MG/100 ML BAG IV CONT (17:12)
[2023-10-28 17:25] LABS: Thyroid Stimulating Hormone 0.319 uIU/mL (0.465-4.680)
--- NOTE | 2023-10-28 17:48 | PM.IMHP ---
H&P: HPI History of Present Illness Date/Time: 10/28/23 17:48 Chief Complaint: Tachycardia Narrative: 83 y/o F presents here with tachycardia with PMH of paroxysmal atrial fibrillation on anticoagulation, hypothyroidism, hypertension, hyperlipidemia, diabetes, and obesity. The patient presents here from home for further evaluation of tachycardia. Patient reports feeling off yesterday and she checked her watch which showed her HR was in the 120's. Patient monitored her heart rate all day and suspected she was back in atrial fibrillation. Patient did not initially seek care because she was hoping she would convert on her own. Endorsed mild intermittent diaphoresis and lightheadedness. No associated shortness of breath, chest pain, palpitations, or dizziness. Denies any missed doses of her diltiazem, last dose this morning. Last episode of A-Fib was on July and was initially diagnosed in May. No other complaints at this time. Initial VS at presentation: 97.6? F, HR 124, RR 18, 120/61, and 98% on RA. ED workup showed: No leukocytosis, hemoglobin 11.9, INR 1.4, PTT 39.2, PT 17.2, creatinine 1.6 and GFR 31 (previously 1.8 and GFR 27 on 07/29/23), BNP 6170 (previously 4530 on 07/29/23), and TSH 0.319 (previously 1.68 on 07/29/23). CXR showed no acute cardiopulmonary disease. EKG showed atrial flutter/tachycardia with RVR and right bundle branch block, awaiting formal read. Review of Systems Review of Systems: All systems reviewed & are unremarkable except as noted in HPI and below [facility] Past Medical History Medical History (Updated 10/28/23 @ 21:29 by Minerva Pascal, GUILLERMO) Atherosclerotic heart disease of [place] coronary artery without angina pectoris Gastroesophageal reflux disease Hyperlipidemia Hypertension Hypothyroidism Obese Paroxysmal atrial fibrillation with RVR Type 2 diabetes mellitus Family History Family History Mother Family history of osteoporosis Hypertension Family history of congestive heart failure, Onset Age: 87 Patient's mother is Father Depression Hypertension Family history of malignant neoplasm Family history of diabetes mellitus in first degree relative Patient's father is Other Carcinoma of colon Family history of cardiovascular disease Social History Social History Smoking packs per day: 3 Smoking cigarettes per day: 60.0 Years smoked: 19 Smoking pack-years: 57.00 Smoking status: Former smoker Tobacco type: cigarettes Second hand tobacco smoke exposure: No Smoking end date: 03/16/1967 Alcohol intake: never Drinks per week: 1 Substance use: never Substance use type: does not use Do You Feel Safe in your Home?: Yes Lack of Transportation: No Lack of Food: Never True Current Housing: I Have Housing Concerned About Future Housing: No Difficulty Paying Gas/Electric Bills: No Difficulty Paying for Meds: No Currently Unemployed: No Education: Associate Degree Difficulty w/ Childcare or Family Care: No Spiritual care concerns: No Meds Home Medications and Allergies Home Medications Medication Instructions Recorded Confirmed Type aspirin 81 mg tablet,delayed 81 mg PO DAILY 02/14/19 10/28/23 History release (Adult Low Dose Aspirin) cartilage 40 mg-collagen II-boron 1 tablet PO DAILY 02/14/19 10/28/23 History 5 mg-hyaluronate sod 3.3 mg tablet (Move Free Ultra Triple Action (boron)) cholecalciferol (vitamin D3) 25 2,000 unit PO DAILY 02/14/19 10/28/23 History mcg (1,000 unit) capsule krill oil 500 mg capsule 500 mg PO DAILY 02/14/19 10/28/23 History mecobalamin (vitamin B12) 1,000 1,000 mcg PO DAILY 02/14/19 10/28/23 History mcg disintegrating tablet,sublingual vitamin E (dl, acetate) 180 mg 400 unit PO DAILY 02/14/19 10/28/23 History (400 unit) capsu
--- NOTE | 2023-10-28 18:12 | PC.NURSE ---
confirmed Cardizem rate changed with ISABELL Lopez
--- NOTE | 2023-10-28 18:47 | PC.NURSE ---
Report Given to Rocio Shipman RN. All questioned answered by this RN.
[2023-10-28 18:59] LABS: Free T4 Free Thyroxine 1.66 ng/mL (0.78-2.19)
--- NOTE | 2023-10-28 19:31 | PC.NURSE ---
VORB to titrate drip back down to 5mg/hr per Dr. Carrasquillo due to bp reading. aware of heart rate still being elevated.
--- NOTE | 2023-10-28 19:44 | ECG_ITS ---
Test Date: 2023-10-28 19:52:06 Measurements Intervals [place] Rate: 129 P: 0 [place]: 0 QRS: 50 QRSD: 123 T: 35 QT: 329 QTc: 483 Interpretive Statements ATRIAL FLUTTER/TACHYCARDIA WITH RAPID VENTRICULAR RESPONSE INDETERMINATE AXIS RIGHT BUNDLE BRANCH BLOCK [120+ ms QRS DURATION, UPRIGHT V1, 40+ ms S IN I/aVL/V4/V5/V6] Compared to ECG 10/28/2023 15:16:55 NO SIGNIFICANT CHANGES Electronically Signed On 10-29-2023 09:55:23 CDT by Jaylyn Fuller M.D.
[2023-10-28 20:25] LABS: Troponin I 0.024 ng/mL (0.000-0.034)
--- NOTE | 2023-10-28 20:45 | ADMGEN ---
This patient, Flakita Abdi, was admitted to Virtual [facility] IMU-1. Patient/family oriented to hospital policies and general routines including ID bracelet, bed and alarms, visiting hours, pain management, procedures, bathroom and other care routines, personal items, smoking policy, room service/diet, and visiting hours. Information on how to activate the Rapid Response Team has been discussed. Patient/Family are encouraged to report perceived risks to care and to ask questions if they do not understand what they are told or what they should do. Patient arrived to IMU at 2019.
[2023-10-28] MEDS: dilTIAZem 100 MG/100 ML 100 MG/100 ML BAG 10 MG IV CONT (21:47)
[2023-10-28 22:56] LABS: Troponin I 0.027 ng/mL (0.000-0.034)
[2023-10-29] VITALS (27 sets, daily range): BP systolic 94–134; BP diastolic 35–72; PULSE 63–135; RESP 14–20; TEMP 36.1–36.6; O2SAT 94–99
[2023-10-29] MEDS: dilTIAZem HCl INJ 25 MG/5 ML VIAL 10 MG IV PUSH (00:11)
[2023-10-29 04:45] LABS: Basophils Percent Auto 0.3 % (0.2-1.2); Eosinophils Absolute Auto 0.1 K/mm3 (0-0.3); Hematocrit 34.4 % (37.0-47.0); Hemoglobin 10.7 g/dL (12.0-15.0); Immature Granulocyte Absolute 0.01 K/mm3 (0.00-0.031); Immature Granulocyte Percent A 0.2 % (0-0.5); Lymphocytes Absolute Auto 1.45 K/mm3 (0.9-3.2); Lymphocytes Percent Auto 23.5 % (18.3-44.2); Mean Corpuscular HGB Conc 31.1 g/dl (32-36); Mean Corpuscular Hemoglobin 28.2 pg (26-34); Mean Corpuscular Volume 90.5 fl (80-100); Mean Platelet Volume 11.6 fl (7.4-10.4); Monocytes Absolute Auto 0.6 K/mm3 (0.1-0.6); Platelet Count Result 272 k/mm3 (150-375); Red Cell Distribution Width 15.3 % (11.5-14.5); White Blood Count 6.2 K/mm3 (4.5-10.0)
[2023-10-29 05:05] LABS: Anion Gap 10 mmol/L (4-12); Blood Urea Nitrogen 39 mg/dL (7-17); Calcium 9.1 mg/dL (8.4-10.2); Carbon Dioxide 27 mmol/L (22-30); Chloride 98 mmol/L (98-107); Estimated CRCL calculation 22 ml/min; Estimated Glomerular Filt Rate 27; Glucose 159 mg/dL (65-110); Potassium 4.2 mmol/L (3.4-5.0); Sodium 135 mmol/L (137-145)
[2023-10-29 06:55] LABS: Glucose Point of Care 138 mg/dl (65-105)
[2023-10-29] MEDS: dilTIAZem 100 MG/100 ML 100 MG/100 ML BAG 15 MG IV CONT ×3 (07:45→20:45)
[2023-10-29] MEDS: ACETAMINOPHEN 325 MG TABLET 650 MG PO ×3 (09:14→20:42)
[2023-10-29] MEDS: ATORVASTATIN 40 MG TABLET PO (09:20)
[2023-10-29] MEDS: ASPIRIN 81 MG ENTERIC TABLET PO (09:20)
[2023-10-29] MEDS: APIXABAN 5 MG TABLET PO ×2 (09:20→20:41)
--- NOTE | 2023-10-29 09:31 | PM.CNCAR ---
Assessment and Plan Assessment and plan (1) Atrial fibrillation with rapid ventricular response: Code(s): I48.91 - Unspecified atrial fibrillation Status: Acute Assessment and Plan: Paroxysmal atrial fibrillation first diagnosed in May of this year. Presents with recurrent atrial fibrillation with rapid ventricular response. Improvement in heart rates on diltiazem drip. I discussed the concept of rate control vs. rhythm control with her. At this time, she is not interested in electrical cardioversion or attempting chemical cardioversion with amiodarone (not a candidate for flecainide because of CAD). We will continue with rate control strategy. Continue diltiazem gtt at 15mg/hr Add metoprolol tartrate 25mg q12h. Give first dose now Monitor blood pressure closely Continue telemetry Will check apnea link TSH 0.319, T4 within normal limits Continue apixaban 5mg b.i.d. (2) Morbid obesity with BMI of 40.0-44.9, adult: Code(s): E66.01 - Morbid (severe) obesity due to excess calories; Z68.41 - Body mass index [BMI] 40.0-44.9, adult Status: Acute Assessment and Plan: Weight loss counseling (3) Essential (primary) hypertension: Code(s): I10 - Essential (primary) hypertension Status: Chronic Assessment and Plan: At goal. Continue current medical regimen. History of Present Illness History of Present Illness Consult date/time: 10/29/23 09:31 Reason For Visit: Afib with RVR Narrative: Flakita Abdi is a 83 year old female with paroxysmal atrial fibrillation, coronary artery disease, hypertension, and dyslipidemia. She follows with Dr. Bashir for her cardiovascular care. She presents to the hospital now because of tachycardia. She reports feeling weird yesterday, so she checked her apple watch and noted her heart rate to be elevated in the 140's. She has been placed on a diltiazem drip and remains in atrial fibrillation with rapid ventricular response, however her heart rate is improving. With improved heart rates she is asymptomatic, but reports feeling weak. In the past, she has spontaneously converted to sinus rhythm and has never undergone cardioversion. Outpatient telemetry monitoring showed a 12% AF burden. Review of Systems Review of Systems: All systems reviewed & are unremarkable except as noted in HPI and below PMFSH Past Medical History Medical History Atherosclerotic heart disease of [place] coronary artery without angina pectoris Gastroesophageal reflux disease Hyperlipidemia Hypertension Hypothyroidism Obese Paroxysmal atrial fibrillation with RVR Type 2 diabetes mellitus Family History Family History Mother Family history of osteoporosis Hypertension Family history of congestive heart failure, Onset Age: 87 Patient's mother is Father Depression Hypertension Family history of malignant neoplasm Family history of diabetes mellitus in first degree relative Patient's father is Other Carcinoma of colon Family history of cardiovascular disease Social History Social History Smoking packs per day: 3 Smoking cigarettes per day: 60.0 Years smoked: 19 Smoking pack-years: 57.00 Smoking status: Former smoker Tobacco type: cigarettes Second hand tobacco smoke exposure: No Smoking end date: 03/16/1967 Alcohol intake: never Drinks per week: 1 Substance use: never Substance use type: does not use Do You Feel Safe in your Home?: Yes Lack of Transportation: No Lack of Food: Never True Current Housing: I Have Housing Concerned About Future Housing: No Difficulty Paying Gas/Electric Bills: No Difficulty Paying for Meds: No Currently Unemployed: No Education: Associate Degree Difficulty w/ Childca
--- NOTE | 2023-10-29 10:05 | PC.NURSE ---
Alert and oriented, laying n bed. Vital signs stable at this time. Discussed plan of care including medications and medication schedules. After answering several questions, verbalizes understanding at this time. library monitor remains on and functioning at this time. Complains of arm pain, states when arms are still the pain is fine, but with movement it increases. Medication given for pain, (see eMAR). No acute distress noted at this time.
[2023-10-29 11:46] LABS: Glucose Point of Care 238 mg/dl (65-105)
[2023-10-29] MEDS: INSULIN ASPART (*BKC) 100 UNITS/ML SUB-Q (11:49)
[2023-10-29] MEDS: CHOLECALCIFEROL 1,000 UNITS TABLET 2000 UNITS PO (11:51)
[2023-10-29] MEDS: METOPROLOL TARTRATE 25 MG TABLET PO ×2 (11:51→20:41)
--- NOTE | 2023-10-29 14:49 | PM.IMPN ---
Progress Note: A&P Assessment and Plan (1) Atrial fibrillation with rapid ventricular response: Code(s): I48.91 - Unspecified atrial fibrillation Status: Acute Assessment and Plan: 10/29/23: EKG showing an atrial flutter with RVR with a rate of 128, right bundle branch block Chest x-ray is negative Troponin essentially negative x2 Continue Eliquis Patient currently on Cardizem drip 15mg/hr, will await Cardiology input Cardiology consulted Previous echo showing normal LV systolic function with an estimated EF of 70%, diastolic dysfunction on 05/19/2023 Continuous telemetry monitoring Keep in IMU today (2) Hypothyroidism: Qualifiers: Hypothyroidism type: unspecified Qualified Code(s): E03.9 - Hypothyroidism, unspecified Code(s): E03.9 - Hypothyroidism, unspecified Status: Chronic Assessment and Plan: 10/29/23: TSH 0.319 T4 1.66 T3 pending Continue to hold Synthroid (3) Type 2 diabetes mellitus: Qualifiers: Diabetes mellitus custodial insulin use: without custodial use Diabetes mellitus complication status: without complication Qualified Code(s): E11.9 - Type 2 diabetes mellitus without complications Code(s): E11.9 - Type 2 diabetes mellitus without complications Status: Chronic Assessment and Plan: 10/29/23: Blood sugars ranging 138-238 Hgb A1C 7.1 on 05/19/2023 Accu checks AC/HS Low-dose SSI ordered hypoglycemic protocol in place Diabetic diet ordered Hold glipizide and metformin (4) Essential (primary) hypertension: Code(s): I10 - Essential (primary) hypertension Status: Chronic Assessment and Plan: 10/29/23: Blood pressure ranging 1 9/51 to 134/35 Continue to hold losartan/hydrochlorothiazide Time Spent With Patient Time with patient: Greater than 35 minutes Subjective Date/time seen: 10/29/23 14:49 Interval history: Interval history: This is an 83-year-old female who presented to the hospital on 10/28/2023 with high heart rate of 120. Workup in the hospital included a chest x-ray which was negative. EKG showed a flutter with rapid ventricular rate, right bundle branch block with a rate of 129, QTC 483. Initial labs showed a hemoglobin of 11.9, sodium 135, chloride 96, creatinine 1.6, EGFR 31, troponin negative x2, proBNP 6170, TSH 0.319, free T4 1.66, free T3 pending. Patient was given 10 mg IV push Cardizem and started on a Cardizem infusion. She was transferred to IMU for closer monitoring. Cardiology was consulted. 10/29/23: Patient denies any fever, chills, lightheadedness, dizziness, nausea, vomiting, diarrhea, abdominal pain, chest pain. She does complain of shortness of breath with exertion. Labs and imaging reviewed. Review of Systems Review of Systems: All systems reviewed & are unremarkable except as noted in HPI and below Constitutional: Constitutional: Reports as per HPI and Reports no additional constitutional complaints Eyes: Eyes: Reports as per HPI and Reports no additional eye complaints ENT: Reports system reviewed and no additional complaints, except as documented and Reports as per HPI Cardiovascular: Cardiovascular: Reports as per HPI and Reports no additional cardiovascular complaints Respiratory: Respiratory: Reports as per HPI and Reports no additional respiratory complaints Gastrointestinal: Gastrointestinal: Reports as per HPI and Reports no additional gastrointestinal complaints Genitourinary: Genitourinary: Reports no additional female genitourinary complaints and Reports as per HPI Musculoskeletal: Musculoskeletal: Reports no additional musculoskeletal complaints and Reports as per HPI Integumentary/Breasts: Skin/Breast: Reports system reviewed and no additional complaints, except as docu and Reports as per HPI Neurologic: Reports system reviewed and no additional complaints, except as documented and Reports as per HPI Psychiat
[2023-10-29] MEDS: metFORMIN HCL 500 MG TABLET PO (16:01)
[2023-10-29 16:05] LABS: Glucose Point of Care 170 mg/dl (65-105)
[2023-10-29 20:31] LABS: Glucose Point of Care 215 mg/dl (65-105)
[2023-10-29] MEDS: LATANOPROST 0.005% OP SOLN 2.5 ML BTL 1 DROP EACH EYE (20:41)
--- NOTE | 2023-10-29 22:04 | PCRCNOTE ---
Patient stated that she did not want to do Apnea link.
[2023-10-30] VITALS (16 sets, daily range): BP systolic 96–145; BP diastolic 48–92; PULSE 63–99; RESP 18–20; TEMP 36.4–37.1; O2SAT 98–100
[2023-10-30] MEDS: dilTIAZem 100 MG/100 ML 100 MG/100 ML BAG 15 MG IV CONT (04:09)
[2023-10-30] MEDS: LEVOTHYROXINE SODIUM 88 MCG TABLET BY MOUTH (06:22)
[2023-10-30 06:41] LABS: Glucose Point of Care 170 mg/dl (65-105)
[2023-10-30] MEDS: METOPROLOL TARTRATE 25 MG TABLET PO (08:15)
[2023-10-30] MEDS: APIXABAN 5 MG TABLET PO (08:15)
[2023-10-30] MEDS: ATORVASTATIN 40 MG TABLET PO (08:15)
[2023-10-30] MEDS: CHOLECALCIFEROL 1,000 UNITS TABLET 2000 UNITS PO (08:15)
[2023-10-30] MEDS: VITAMIN E 400 UNIT CAPSULE PO (08:15)
[2023-10-30] MEDS: ASPIRIN 81 MG ENTERIC TABLET PO (08:15)
--- NOTE | 2023-10-30 09:24 | ECG_ITS ---
Test Date: 2023-10-30 10:20:15 Measurements Intervals [place] Rate: 64 P: 0 [place]: 0 QRS: -7 QRSD: 134 T: 1 QT: 451 QTc: 467 Interpretive Statements ATRIAL FLUTTER WITH CONTROLLED VENTRICULAR RESPONSE RIGHT BUNDLE BRANCH BLOCK [120+ ms QRS DURATION, UPRIGHT V1, 40+ ms S IN I/aVL/V4/V5/V6] ABNORMAL ECG Compared to ECG 10/28/2023 19:52:06 Indeterminate axis no longer present Electronically Signed On 10-30-2023 15:07:14 CDT by Bill Quintana M.D.
--- NOTE | 2023-10-30 09:26 | PM.PNCARD ---
Progress Note: A&P Assessment and Plan (1) Atrial fibrillation: Code(s): I48.91 - Unspecified atrial fibrillation Status: Acute Plan 83-year-old lady with paroxysmal atrial fibrillation admitted with an asymptomatic recurrence of her arrhythmia. Metoprolol has been started in addition to her diltiazem. A by physical exam and telemetry she appears to be in sinus rhythm. Will get a 12 lead EKG for confirmation of that. Will transition her back to her oral diltiazem. If she is in sinus rhythm she can be discharged and recommended strongly to Mrs. Abdi that for recurrences of this she should ideally be hospitalized or seek care at [facility] where her cardiology practices. Atrial fibrillation is not an emergent issue that requires care at the nearest facility. Bill Quintana MD [facility] Subjective Date/time seen: Date of service: 10/30/23 09:26 Interval history: Follow-up visit in this 83-year-old lady with: Paroxysmal atrial fibrillation admitted yesterday for a asymptomatic recurrence of atrial fibrillation. She simply noticed tachycardia on her Apple watch but otherwise was unaware of her arrhythmia. She has had metoprolol added to her diltiazem which she is now receiving intravenously and on telemetry appears to have converted back to sinus rhythm. This patient also has coronary artery disease with previous PCI and is established with Dr. Bashir at [facility] for chronic care and follow-up. Exam Const: General: comfortable and no acute distress Other: Pleasant morbidly obese lady no distress HENMT: Mouth: Yes moist mucous membranes Eyes: Sclera: sclerae normal Neck: Neck: supple Resp: Effort & Inspection: normal respiratory effort Auscultation: clear to auscultation bilaterally Cardio: Rate: regular rate Rhythm: regular rhythm GI: GI Palp: Yes Soft to palpation Auscultation: normal bowel sounds Skin: General skin exam: normal color Neuro: Other: Alert and oriented x3 Extrem: Other: No edema adequate pulses Objective Data Vital Signs Vital Signs: Vital Signs - 24 hr 10/29/23 10:00 10/29/23 10:10 10/29/23 10:00 Temperature Pulse Rate 116 H 133 H 112 H Respiratory Rate Blood Pressure 128/58 L Pulse Oximetry 94 Oxygen Delivery 10/29/23 11:47 10/29/23 11:51 10/29/23 14:00 Temperature 36.2 C L Pulse Rate 129 H 126 H 63 Respiratory Rate 20 Blood Pressure 109/51 L 134/35 L Pulse Oximetry 96 Oxygen Delivery 10/29/23 14:25 10/29/23 14:55 10/29/23 12:00 Temperature Pulse Rate 83 83 133 H Respiratory Rate Blood Pressure Pulse Oximetry Oxygen Delivery 10/29/23 12:00 10/29/23 16:00 10/29/23 16:00 Temperature Pulse Rate 133 H 85 84 Respiratory Rate 20 20 Blood Pressure Pulse Oximetry 96 97 Oxygen Delivery Room Air Room Air 10/29/23 14:00 10/29/23 16:00 10/29/23 18:00 Temperature 36.3 C L Pulse Rate 63 84 Respiratory Rate 20 Blood Pressure 120/64 94/44 L Pulse Oximetry 97 Oxygen Delivery 10/29/23 18:00 10/29/23 20:18 10/29/23 20:00 Temperature 36.6 C Pulse Rate 84 94 Respiratory Rate 20 Blood Pressure 111/49 L Pulse Oximetry 98 Oxygen Delivery Room Air 10/29/23 20:41 10/29/23 20:45 10/29/23 20:45 Temperature Pulse Rate 66 87 87 Respiratory Rate Blood Pressure Pulse Oximetry Oxygen Delivery 10/29/23 22:00 10/29/23 20:00 10/29/23 22:00 Temperature 36.4 C Pulse Rate 65 95 65 Respiratory Rate 20 Blood Pressure 120/63 Pulse Oximetry 98 Oxygen Delivery 10/29/23 23:35 10/30/23 00:00 10/30/23 00:00 Temperature 36.5 C Pulse Rate 64 90 Respiratory Rate 20 Blood Pressure 123/72 Pulse Oximetry 99 Oxygen Delivery Room Air 10/30/23 01:55 10/30/23 02:00 10/30/23 03:26 Temperature 36.5 C Pulse Rate 63 64 68 Respiratory Rate 20 Blood Pressure 96/51 L Pulse Oximetry 98 Oxygen Deliv
[2023-10-30] MEDS: dilTIAZem HCL CD 240 MG CAP.24HR PO (10:24)
[2023-10-30 11:34] LABS: Glucose Point of Care 216 mg/dl (65-105)
[2023-10-30] MEDS: INSULIN ASPART (*BKC) 100 UNITS/ML SUB-Q (11:45)
--- NOTE | 2023-10-30 12:38 | PM.DS ---
DS: Admitting Diagnosis Discharge Date 10/30/23 Admitting Diagnosis AFib with RVR Hypothyroidism Type 2 diabetes mellitus Essential hypertension DS: Discharge Diagnosis Discharge Diagnosis (1) Atrial fibrillation with rapid ventricular response: Code(s): I48.91 - Unspecified atrial fibrillation Status: Acute (2) Hypothyroidism: Qualifiers: Hypothyroidism type: unspecified Qualified Code(s): E03.9 - Hypothyroidism, unspecified Code(s): E03.9 - Hypothyroidism, unspecified Status: Chronic (3) Type 2 diabetes mellitus: Qualifiers: Diabetes mellitus mcfp insulin use: without terminologist use Diabetes mellitus complication status: without complication Qualified Code(s): E11.9 - Type 2 diabetes mellitus without complications Code(s): E11.9 - Type 2 diabetes mellitus without complications Status: Chronic (4) Essential (primary) hypertension: Code(s): I10 - Essential (primary) hypertension Status: Chronic DS: Summary Hospital Course Reason for hospitalization: AFib with RVR Hypothyroidism Type 2 diabetes mellitus Essential hypertension Hospital Course: This is an 83-year-old female who presented to the hospital on 10/28/2023 with high heart rate of 120. Workup in the hospital included a chest x-ray which was negative. EKG showed a flutter with rapid ventricular rate, right bundle branch block with a rate of 129, QTC 483. Initial labs showed a hemoglobin of 11.9, sodium 135, chloride 96, creatinine 1.6, EGFR 31, troponin negative x2, proBNP 6170, TSH 0.319, free T4 1.66, free T3 pending. Patient was given 10 mg IV push Cardizem and started on a Cardizem infusion. She was transferred to IMU for closer monitoring. Cardiology was consulted and started metoprolol 25 mg b.i.d. better rate control. She remained on the Cardizem drip until this morning and then was transitioned to oral Cardizem 240 mg daily along with her metoprolol 25 mg b.i.d.. She is now rate controlled between 60-90 and is still in a flutter. Cardiology is okay with patient discharging home with follow-up in 2 weeks. Labs reviewed and were essentially unremarkable. She is stable for discharge at this time. Final diagnosis: A flutter with RVR Status at Discharge Cognitive/behavioral status at discharge: Alert oriented x3 Functional status at discharge: independent ambulation Overall status at discharge: patient is progressing back to baseline Time Spent with Patient Time attestation: Total time spent providing and/or coordinating discharge services: Time spent: Greater than 30 minutes Exam Narrative: General: In no acute distress, well nourished Head: atraumatic, no encephalopathy Eyes: EOMI, PERRLA, sclera clear ENT: moist mucous membranes, nasal passages clear Neck: supple, no JVD, no adenopathy, trachea midline Cardiac: Normal S1 and S2. Irregular rate and rhythm, a flutter No murmur, gallops or friction rubs, peripheral pulses intact. Respiratory: Lungs clear to auscultation, no adventitious lung sounds, currently on air Gastrointestinal: soft, non-distended, non-tender, normoactive bowel sounds. : voiding without difficulty. Extremities: moves all extremities well, no edema Skin: clean, dry, intact. No wounds or lesions. Neuro: Alert and oriented x4, cranial nerves intact, no neuro deficits. Psych: normal mood, normal affect, interactive DS: Data Data Completed and Pending Completed studies during hospitalization: Chest x-ray Pending studies at discharge: None Labs on day of discharge: Labs from last 24 hours 10/30/23 10/30/23 10/29/23 11:31 06:38 20:28 POC Capillary Glucose 216 H 170 H 215 H 10/29/23 15:40 POC Capillary Glucose 170 H Procedures/Treatments: None Discharge Plan Discharge Attending physician on discharge: Sadia Lovett Consulting providers: Imani Nix; Cyndie Summers Discharging Clinician: Janette Nix
[2023-10-30 15:59] LABS: T3 Free 2.6
== END 2023-10-30 16:30 | disposition home or self-care (01) | DRG 309 ==
LOC: ANHED 17:22 → ANHIMU 19:42
PROVIDERS: Student in an Organized Health Care Education/Training Program; Admitting Provider General Practice; Emergency Provider Emergency Medicine; PCP Physician Assistant; Visit Provider Nurse Practitioner Acute Care
DX: I48.92 Unspecified atrial flutter (principal); Z68.41 Body mass index [BMI] 40.0-44.9, adult; E66.01 Morbid (severe) obesity due to excess calories; E03.9 Hypothyroidism, unspecified; E11.9 Type 2 diabetes mellitus without complications; E78.5 Hyperlipidemia, unspecified; I10 Essential (primary) hypertension; I48.0 Paroxysmal atrial fibrillation; I25.10 Atherosclerotic heart disease of native coronary artery without angina pectoris; Z87.891 Personal history of nicotine dependence; Z79.01 Long term (current) use of anticoagulants
CPT/HCPCS: 36415; 71045; 80048; 80053; 82948; 83880; 84439; 84443; 84480; 84484; 85025; 85610; 85730; 93005; 96365; 96366; 99285; A9270; G0378; J1815

== ENCOUNTER 2024-05-28 04:31 | Emergency (ER) | payer MEDICARE, SELFPAY ==
[2024-05-28 04:33] VITALS: BP 104/39; PULSE 88; RESP 16; TEMP 36.6; O2SAT 100
--- OUTSIDE RECORDS SUMMARY | 2024-05-28 04:33 | XMS_ITS | Clinical Summary ---
Author Organization [facility] D Address [address] [place] [address] Care Team Providers Care Tree Sapper Name Role Phone Yaakov Chauhan NP Primary Care Provider [phone] Bill Franco MD Unavailable [phone] Allergies No known active allergies Medications blood glucose diagnostic strip Active latanoprost (XALATAN) 0.005 % ophthalmic solution Administer 1 drop into both eyes nightly Active cyanocobalamin , vitamin B-12, (VITAMIN B-12 ORAL) Take 1,000 mcg by mouth daily. Active cholecalcifero l (VITAMIN D-3) 1,000 unit capsule Take 1 capsule (1,000 Units total) by mouth daily Active magnesium oxide 400 mg magnesium tablet Take 1 tablet by mouth nightly Active vitamin E 400 unit capsule Take 1 capsule (400 Units total) by mouth daily Active Eliquis 5 mg tablet Take 1 tablet (5 mg total) by mouth 2 (two) times a day 4 Active aspirin 81 mg enteric coated tablet Take 1 tablet (81 mg total) by mouth nightly Active atorvastatin (LIPITOR) 40 mg tablet Take 1 tablet (40 mg total) by mouth nightly Active meclizine (ANTIVERT) 25 mg tablet Take 1 tablet (25 mg total) by mouth 3 (three) times a day as needed for dizziness Active metoprolol tartrate (LOPRESSOR) 25 mg immediate release tablet Take 0.5 tablets (12.5 mg total) by mouth 2 (two) times a day 4 01/20/20 25 Active acetaminophen 500 mg capsuleIndicat ions:Pain Take 2 capsules (1,000 mg total) by mouth every 6 (six) hours as needed for pain 4 Active levothyroxine (SYNTHROID) 50 mcg tabletIndicati ons:hypothyroi dism Take 1 tablet (50 mcg total) by mouth daily 4 Active potassium chloride ER (KLOR-CON) 20 mEq CR tablet Take 1 tablet (20 mEq total) by mouth 2 (two) times a day Take 1 tablet (20 mEq total) by mouth 2 (two) times a day for 1 week then decrease to 1 tablet (20 mEq total) by mouth once a day 4 Active amoxicillin (AMOXIL) 500 mg tablet/capsule Take 4 caps (2000 mg) 1 hour prior to dental procedures. 4 10/25/19 38 Active Additional Information Patient not taking.Reported on 05/16/2024 furosemide (LASIX) 80 mg tablet Take 1 tablet (80 mg total) by mouth 2 (two) times a day TAKE 1 TAB PO BID 180 tablet 3 4 02/25/20 25 Active dilTIAZem XR 180 mg 24 hr capsule Take 1 capsule (180 mg total) by mouth daily 5 Active losartan-hydro CHLOROthiazide (HYZAAR) 100-12.5 mg per tablet Take 1 tablet by mouth daily 5 Active metFORMIN (GLUCOPHAGE) 500 mg tablet Take 1 tablet (500 mg total) by mouth 2 (two) times a day with meals 5 Active insulin glargine (LANTUS, SEMGLEE) 100 unit/mL vial for injectionIndic ations:Diabete s Mellitus Inject 8 Units under the skin nightly 4 05/17/19 25 Discontin ued(Thera py completed ) insulin lispro (HumaLOG, ADMELOG) 100 unit/mL vial for injection Inject 3 Units under the skin 3 (three) times a day with meals (plus blood glucose mg/dL 150-199: 1 unit, 200-249: 2 units, 250-299: 3 units, 300 or greater: 4 units, 350 or greater: 5 units. Notify provider for blood glucose greater than 299 mg/dL.) Refer to After Visit Summary for Sliding Scale Insulin Instructions. 4 05/17/19 25 Discontin ued(Thera py completed ) traMADoL (ULTRAM) 50 mg tablet Take 1 tablet (50 mg total) by mouth every 8 (eight) hours as needed for pain 20 tablet 4 05/17/19 25 Discontin ued(Thera py completed ) collagenase (SANTYL) ointmentIndica tions:skin ulcer Apply 1 Application topically daily 05/17/19 25 Discontin ued(Thera py completed ) Active Problems Problem Noted Date Diagnosed Date History of mitral valve replacement 02/15/2024 CKD stage 3b, GFR 30-44 ml/min 02/15/2024 Nonrheumatic aortic valve stenosis 02/15/2024 Pleural effusion on right 01/12/2024 Acute hypoxemic respiratory failure 12/25/[address] 12/25/2023 Atrial fibrillation with rapid ventricular respo nse 12/18/2023 Atrial flutter 02/02/2020 Assessment & Plan (04/30/2021 2:47 PM [employer]ITION[employer] FIGHTING [employer]): Monitor findings are most supportive of the diagnosis of paroxysmal supraventricular tachycardia. The mechanism of her SVT is most likely focal atrial tachycardia, however other mechanisms cannot be excluded. I do not see any clear evidence of sustained atrial fibrillation. I had a long discussion with the patient regarding the nature of this diagnosis. I reassured her that these are benign arrhythmias. I offered her options regarding management. These options would include suppressive medical therapy versus diagnostic EP study and possible catheter ablation. The patient would prefer to start with medical therapy. I think this is reasonable. --Start metoprolol XL 25 mg once daily --F/u 3 months to reassess. Morbid obesity 01/26/2017 Assessment & Plan (01/26/2017 6:09 PM [employer]ITIONARY FIGHTING VEHICLE CREWMAN): Weight loss through calorie restriction and increased activity recommended. Morbid obesity with BMI of 40.0-44.9, adult 01/14 Assessment & Plan (02/04/2021 11:32 AM EXPEDITIONARY FIGHTING VEHICLE CREWMAN): She would benefit from weight loss through diet and exercise. Assessment & Plan (02/03/2020 5:47 PM EXPEDITIONARY FIGHTING VEHICLE CREWMAN): Would benefit from weight loss through diet and exercise. Assessment & Plan (02/28/2019 8:41 PM EXPEDITIONARY FIGHTING VEHICLE CREWMAN): Weight is up 9 lb since last year. Recommended weight loss through calorie restriction and increased activity. Assessment & Plan (02/01/2018 3:01 PM EX[employer]ITIONARY FIGHTING VEH[employer]LE CREWMAN): Calorie restriction and increased activity recommended. Coronary artery disease of n ative artery of [place] heart with stable angina pectoris 01/02/2014 Overview (06/21/2016): Coronary arteriosclerosis in [place] artery Assessment & Plan (02/04/2021 11:30 AM EX[employer]ITION[employer] FIGHTING [employer]LE [employer]MAN): No symptoms of myocardial ischemia. Continue aspirin 81 mg daily. Myocardial perfusion study one year ago showed a very mild defect similar to that described in 2011 which turned out at that time to be a false-positive. In the absence of symptoms would not recommend cardiac catheterization. Assessment & Plan (02/03/2020 5:46 PM EXPEDITIONARY FIGHTING [employer]LE CREWMAN): Asymptomatic. Mild perfusion defect is similar to that described in 2010 at which time she had favorable cardiac catheterization showing it to be a false- positive. Would not investigate with cardiac catheterization. Continue aspirin. Assessment & Plan (02/28/2019 8:37 PM [employer]ITIONARY FIGHTING [employer]LE [employer]WMAN): Asymptomatic. Continue aspirin. Assessment & Plan (02/01/2018 2:59 PM EXPEDITIONARY FIGHTING VEH[employer]LE CREWMAN): No symptoms of myocardial ischemia. Favorable MPI one year ago. Continue aspirin. Assessment & Plan (01/26/2017 6:09 PM EX[employer]ITIONARY FIGHTING [employer]LE CREWMAN): No symptoms of myocardial ischemia. 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 Continue anti- platelet therapy. Hypertension associated with diabetes 07/30/2013 Overview (06/19/2016): HYPERTENSION NOS Assessment & Plan (02/04/2021 11:30 AM EX[employer]ITIONARY FIGHTING [employer]LE [employer]MAN): Blood pressure is well controlled on losartan HCT 100/12.5 mg daily which she should continue. Assessment & Plan (02/03/2020 5:46 PM EXPEDITIONARY FIGHTING VEH[employer]LE CREWMAN): Blood pressure is adequately controlled on current regimen. No change was made. Assessment & Plan (02/28/2019 8:37 PM EXPEDITIONARY FIGHTING VEHICLE CREWMAN): Blood pressure is adequately controlled on current regimen. No change was made. Assessment & Plan (02/01/2018 2:59 PM EXPEDITIONARY FIGHTING VEH[employer]LE CREWMAN): Blood pressure is a little elevated, possibly from high sodium diet. She is to restrict her sodium. She is seeing Dr. Danish Barrera later this month. If her blood pressure remains elevated, low-dose beta-rochelle therapy might be considered. Assessment & Plan (01/26/2017 6:09 PM [employer] FIGHTING [employer]LE [employer]MAN): Blood pressure is adequately controlled on current regimen. No change was made. Hyperlipidemia associated with type 2 diabetes johnny logan 07/30/2013 Overview (06/19/2016): PURE HYPERCHOLESTEROLEM Assessment & Plan (02/04/2021 11:32 AM EX[employer]ITION[employer] FIGHTING [employer]): She has been treated for a long time with pravastatin and Zetia. In compliance with new recommendations, will change to atorvastatin 40mg daily. Given that atorvastatin is more potent, she may not need Zetia. I advised her to stop Zetia and pravastatin and will check fasting lipids after she has been on atorvastatin for three months. Will decide at that point if Zetia needs to be resumed. Point of care testing 02/04/2021 Cholesterol 174 HDL 71 Triglycerides 137 LDL 76 Assessment & Plan (02/03/2020 5:46 PM EX[employer]ITIONARY FIGHTING [employer]MAN): On chronic lipid lowering therapy with good control. No changes made. Assessment & Plan (02/28/2019 8:40 PM EX[employer]ITION[employer] FIGHTING VEH[employer]LE CREWMAN): On chronic lipid lowering therapy with good control. No changes made. Assessment & Plan (02/01/2018 3:00 PM EX[employer]ITION[employer] FIGHTING [employer]LE [employer]WMAN): On chronic lipid lowering therapy with good control. No changes made. Assessment & Plan (01/26/2017 6:09 PM [employer]ITION[employer] FIGHTING [employer]LE CREWMAN): On chronic lipid lowering therapy with good control. No changes made. Type 2 diabetes mellitus 07/30/2013 Overview (06/20/2016): DMII WO CMP UNCNTRLD Encounters Date Type Department Care Team Description 05/23/2024 Telephone [facility] Cardiology [address] [place] [address] [address], [place] [address] Bill Franco MD 05/16/2024 10:00 AM [employer]HT[employer] Office Visit [facility] [address] [place] [address] [address], [place] [address] Bill Franco MD Dyspnea, unspecified type (Primary Dx); Weakness; Balance disorder; Hypertension associated with diabetes (HCC); Atrial flutter, unspecified type (HCC); Type 2 diabetes mellitus with stage 3b chronic kidney disease, without long-term current use of insulin (HCC) from Last 3 Months Surgical History Surgery Date Site/Laterality Comments HERNIA REPAIR Hernia repair PERCUTANEOUS TRANSLUMINAL CORONARY ANGIOPLASTY 03/16/1999 - 03/15/2000 Percutaneous Transluminal Coronary Angioplasty PERCUTANEOUS TRANSLUMINAL CORONARY ANGIOPLASTY 03/16/2000 - 03/15/2001 Percutaneous Transluminal Coronary Angioplasty HIATAL HERNIA REPAIR Hiatal Hernia Repair SECTION 03/16/1977 - 03/15/1978 HERNIA REPAIR 03/16/2010 - 03/15/2011 ANGIOPLASTY 03/16/1999 - 03/15/2000 REPLACEMENT TOTAL KNEE Left MITRAL VALVE REPLACEMENT 01/05/2024 Emergency MVR using [address] [employer] Epic Porcine, repair iatrogenic ASD Medical History Medical History Date Comments Disorder of thyroid Thyroid dise ase Hypertension Hypertension Type 2 diabetes mellitus (HCC) D iabetes type 2 Hyperlipidemia Hyperlipidemia CAD (coronary artery disease) DM (diabetes mellitus) (HCC) Migraine Asthma GERD (gastroesophageal reflux disease) OA (osteoarthritis) Morbid obesity with BMI of 40.0-44.9, adult (HCC ) Cataract S/P drug eluting coronary stent placement 1998 CKD (chronic kidney disease) Family History Medical History Relation Name Comments Coronary artery disease Maternal Grandfather Coronary Artery Disease; Heart attack Maternal Grandfather Myocard ial Infarction; Diabetes type II Other 1 Family hist ory of Diabetes -Type 2; Hyperlipidemia Other 2 Family histor y of Hyperlipidemia; Hypertension Other 3 Family history of Hypertension; Relation Name Status Comments Maternal Grandfather Alive Other 1 Other 2 Other 3 Social History Tobacco Use Types Packs/Day Years Used Date Smoking Tobacco: Former Cigarettes 2 18 1 1977 Smokeless Tobacco: Never Tobacco Cessation:Counseling Given: Not Answered Alcohol Use Standard Drinks/Week Comments No 0 (1 standard drink = 0.6 oz pur e alcohol) [facility] Utilities Answer Date Recorded In the past 12 months has th e electric, gas, oil, or water Bleacher Report threatened to shut off services in your home? No 12/21/2023 Social Connection and Isolat ion Panel [NHANES] Answer Date Recorded In a typical week, how many times do you talk on the phone with family, friends, or neighbors? More than three times a week 12/21/2023 How often do you get togethe r with friends or relatives? More than three times a week 12/21/2023 How often do you attend chur ch or congregation services? More than 4 times per year 12/21/2023 Do you belong to any clubs o r organizations such as druze groups, unions, fraternal or athletic groups, or school groups? Yes 12/21/2023 How often do you attend meet ings of the clubs or organizations you belong to? More than 4 times per year 12/21/2023 Are you , , di vorced, , never , or living with a partner? 12/21/2023 AUDIT-C Answer Date Recorded Q1: How often do you have a drink containing alcohol? Never 12/29/2023 Q2: How many drinks containi ng alcohol do you have on a typical day when you are drinking? Patient does not drink Q3: How often do you have si x or more drinks on one occasion? Never 12/29/2023 Overall Financial Resource Strain (CARDIA) Answe r Date Recorded How hard is it for you to pa y for the very basics like food, housing, medical care, and heating? Not hard at all 12/21/2023 Hunger Vital Sign Answer Date Recorded Within the past 12 months, y ou worried that your food would run out before you got the money to buy more. Never true 12/21/19 24 Within the past 12 months, t he food you bought just didn't last and you didn't have money to get more. Never true 12/21/2023 PRAPARE - Transportation Answer Date Re corded In the past 12 months, has l ack of transportation kept you from medical appointments or from getting medications? No 09/2023 In the past 12 months, has l ack of transportation kept you from meetings, work, or from getting things needed for daily living? No 12/21/2023 Housing Stability Vital Sign Answer Elio e Recorded In the last 12 months, was t here a time when you were not able to pay the mortgage or rent on time? No 12/21/2023 In the past 12 months, how m any times have you moved where you were living? 0 12/21/2023 At any time in the past 12 [facility], were you homeless or living in a mcc (including now)? No 12/21/2023 Personal Safety Answer Date Recorded Have you ever been in or are you currently in a harmful physical or emotional relationship or is someone making you feel afraid or unsafe? Denies 01/05/2024 Comments No Sex and Gender Information Value Date Recorded Sex Assigned at Not on file Legal Sex Female 10:42 AM EX[employer]ITIONARY FIG[employer] Gender Identity Not on file Sexual Orientation Not on file Obstetrics History Last Filed Vital Signs Vital Sign Reading Time Taken Comments Blood Pressure 108/68 05/16/2024 10:42 AM EX[employer]ITIONARY FIGHT[employer] Pulse 71 05/16/2024 10:42 AM EXPEDITIONARY FIGHT[employer] Temperature 36.6 C (97.9 F) 01/20/2024 8:13 AM EX[employer]ITIONARY FIGHTING [employer]MAN Respiratory Rate 16 02/16/2024 9:48 AM EXPEDITIONARY FIGHTING [employer]LE [employer]MAN Oxygen Saturation 97% 02/15/2024 2:12 PM EXPEDITIONARY FIGHTING [employer]MAN Inhaled Oxygen Concentration - - Weight 87.5 kg (192 lb 12.8 oz) 025 10:42 AM EXPEDITIONARY [employer]HT[employer] Height 152.4 cm (5') 02/15/2024 2:12 PM [employer]ITION[employer] Body Mass Index 37.65 02/15/2024 2:12 PM EXPEDITIONARY FIGHTING [employer] Plan of Treatment Health Maintenance Due Date Last Done Comments Albumin Creatinine Ratio, Urine 1939 Depression Screening 1939 Osteoporosis Screening-Bone Density Scan 1939 Dilated Eye Exam 1939 Foot Exam 1939 DTaP/Tdap/Td Vaccine (1 - Tdap) 10/15/1950 Hepatitis B Screening 10/15/1957 Pneumococcal vaccine 65+ (1 of 2 - PCV) 10/15/1958 Zoster Vaccine (1 of 2) 10/15/1989 Well Visit 65+ 10/15/2004 Influenza Vaccine (#1) 2023 9, 01/05/2018, 12/23/2016, Additional history exists Hemoglobin A1C 06/18/2024 12/19/2023, 08/31/2017 Lipid Panel 01/07/2025 01/08/2024, 11/0 10/2022, 01/22/2022, Additional history exists Fall Risk Assessment 01/19/2025 01/20/2024 eGFR 01/19/2025 01/20/2024, 110 07/2023, 01/18/2024, Additional history exists Medical Devices Implanted Type Area Morgue Technician Device Identifier Shelf Expiration Date Model / Serial / Lot [employer]ara Vascular System Closure Repair Femoral Artery Suture Mediated Perclose Prostyle 56177-32 - [id number] - [id number] Implanted:Qty: 1 on 01/05/2024 by Trung Barragan MD at [facility] Vascular Closure Device Right: Femoral Vein [employer] 10/13/2025 10017-02 / [id number] / [id number] [employer] V[employer] System Closure Repair Femoral Artery Suture Mediated Perclose Prostyle 00137-23 - [id number] - [id number] Implanted:Qty: 1 on 01/05/2024 by Trung Barragan MD at [facility] Vascular Closure Device Right: Femoral Vein [employer] 10/13/2025 70068-29 / [id number] / [id number] [employer] 6191-1-010 Simplex P Radiopaque Full Dose Cement Bone Sterile - [id number] Implanted:Qty: 1 on 09/14/2017 by Glynn Jaime MD at [facility] Left: Knee [employer] 01/14/2020 6191-1-0 10 / / [id number] [employer] [id number] Vanguard 65mm Cruciate Retaining Primary Knee Left Component - [id number] Implanted:Qty: 1 on 09/14/2017 by Glynn Jaime MD at [facility] Left: Knee [employer] [id number] 01/29/2027 [id number] / / [id number] [employer] 499220 Ascent Maxim 71mm 1 Piece Cruciate Fin Knee Tray Tibial Interlok - [id number] Implanted:Qty: 1 on 09/14/2017 by Glynn Jaime MD at [facility] Left: Knee [employer] [id number] 05/15/2027 [id number] / / [id number] [employer] 141988 Vanguard L71 Mm X H12 Mm Anterior Stabilize; Inlay Knee 0 D Beari - [id number] Implanted:Qty: 1 on 09/14/2017 by Glynn Jaime MD at [facility] Left: Knee [employer] [id number] 04/10/2022 [id number] / / [id number] [employer] Valve Mitral Tissue Stented Epic Plus 29mm F599-63t-12 - [id number] - [id number] Implanted:Qty: 1 on 01/05/2024 by Bill Schmidt MD at [facility] N/A: Mitral Valve [employer] 08/19/2027 [id number] / [id number] / Explanted Type Area Morgue Technician Device Identifier Shelf Expiration Date Model / Serial / Lot Bard Peripheral Vascular P[employer]get Cardiovascular Nominal Thickness Polytetrafluoroethylene 1.65mmx1/4x1/4in [id number] - [id number] Explanted:Qty: 2 on 01/05/2024 at [facility] [employer] [id number] / / Procedures Procedure Name Priority Date/Time Associated Diagnosis Comments EGFR Routine 01/20/2024 12:45 AM EXPEDITIONARY FIGHTING VE[employer]LE [employer]MAN LIPID PANEL Routine 01/08/2024 1:57 AM CDT HEMOGLOBIN A1C Routine 12/19/2023 2:02 AM CDT from Last 3 Months or Most Recently Relevant to Health Maintenance Results * (ABNORMAL) eGFR (01/20/2024 12:45 AM EXPEDITIONARY FIGHTING VEHICLE CREWMAN) eGFR 36(L) >=60 mL/min/1. 73 m2 Comment: Interpretive Data Reference Interval Normal >/= 90 mL/min/1.73m2 Mildly decreased* 60 - 89 mL/min/1.73m2 Mildly to moderately decreased 45 - 59 mL/min/1.73m2 Moderately to severely decreased 30 - 44 mL/min/1.73m2 Severely decreased 15 - 29 mL/min/1.73m2 Kidney Failure < 15 mL/min/1.73m2 *Relative to young adult level Estimated glomerular filtration rate is determined by the 2020 CKD-EPI equation recommended by the National Kidney Foundation (A Unifying Approach to GFR Estimation: Recommendations of the NKF-ASK Task Force on Reassessing the Inclusion of Race in Diagnosing Kidney Disease, JASN 2020). The CKD-EPI equation should not be used for patients with unstable renal function and has not been validated in children and those over 70. Current interpretive data was last reviewed 2021. Blood 01/20/2024 12:4 5 AM EXPEDITIONARY FIGHTING VEHICLE CREWMAN 01/20/2024 1:10 AM EXPEDITIONARY FIGHTING VEHICLE CREWMAN us Claudia Whitaker [employer] LAB BLOOD ORDERABLES [place] [facility] Result [facility] [address] Department [place] [address] * (ABNORMAL) Lipid panel (01/08/2024 1:57 AM CDT) Cholesterol 105 30 - 199 mg/dL Comment: Interpretive Data Ages < or = 19 years Acceptable: <170 mg/dL Borderline high: 170-199 mg/dL High: >or= 200 mg/dL Ages > or = 20 years Desirable: <200 mg/dL Borderline high: 200-239 mg/dL High: >or= 240 mg/dL Literature References: 1. Expert Panel on Integrated Guidelines for Cardiovascular Health and Risk Reduction in Children and Adolescents. Pediatrics 2011;128:S213 2. NCEP Expert Panel. Circulation 2004;110:227 Current Interpretive Data was last revised on 2017. Triglycerides 132 <=149 mg/dL [facility] Comment: Interpretive Data Ages < or = 9 years Acceptable: <75 mg/dL Borderline high: 75-99 mg/dL High: >or= 100 mg/dL Ages 10 to 20 years Acceptable: <90 mg/dL Borderline high: 90-129 mg/dL High: >or= 130 mg/dL Ages > or = 20 years Desirable: <150 mg/dL Borderline high: 150-199 mg/dL High: 200-499 mg/dL Very high: >or= 499 mg/dL Literature References: 1. Expert Panel on Integrated Guidelines for Cardiovascular Health and Risk Reduction in Children and Adolescents. Pediatrics 2011;128:S213 2. NCEP Expert Panel. Circulation 2004;110:227 Current Interpretive Data was last revised on 2017. HDL 35(L) >=40 mg/dL [facility] Comment: Interpretive Data Ages < or = 19 years Acceptable: >45 mg/dL Borderline low: 40-45 mg/dL Low: <40 mg/dL Ages > or = 20 years Desirable: >or= 60 mg/dL Low: <40 mg/dL Literature References: 1. Expert Panel on Integrated Guidelines for Cardiovascular Health and Risk Reduction in Children and Adolescents. Pediatrics 2011;128:S213 2. NCEP Expert Panel. Circulation 2004;110:227 Current Interpretive Data was last revised on 2017. LDL, calculated 47 <=129 mg/dL [facility] Comment: Interpretive Data Ages < or = 19 years Acceptable: <110 mg/dL Borderline high: 110-129 mg/dL High: >or= 130 mg/dL Ages > or = 20 years Optimal: <100 mg/dL Near optimal: 100-129 mg/dL Borderline high: 130-159 mg/dL High: >160 mg/dL Calculated using the Slaughter LDL-C estimating equation. This equation was implemented on 2023. Prior to this date LDL-C was estimated using the Friedewald equation. Literature References: 1. Expert Panel on Integrated Guidelines for Cardiovascular Health and Risk Reduction in Children and Adolescents. Pediatrics 2011;128:S213 2. NCEP Expert Panel. Circulation 2004;110:227 3. Sukhjinder M et al. HARMAN Cardiol. 2019July 14;5(5):540-548. doi: [email or web address] Current Interpretive Data was last revised on 2023. Non-HDL Cholesterol 70 mg/dL [facility] Comment: Interpretive Data Ages < or = 19 years Acceptable: <120 mg/dL Borderline high: 120-144 mg/dL High: >145 mg/dL Ages > or = 20 years When triglycerides are >200 mg/dL, Non-HDL cholesterol is a secondary target of therapy with treatment goals that are 30 mg/dL greater than the LDL cholesterol target. Literature References: 1. Expert Panel on Integrated Guidelines for Cardiovascular Health and Risk Reduction in Children and Adolescents. Pediatrics 2011;128:S213 2. NCEP Expert Panel. Circulation 2004;110:227 Current Interpretive Data was last revised on 2017. Chol/HDL ratio 3 [facility] Blood 01/08/2024 1:57 AM CDT 01/08/2024 2:19 AM CDT us Bill Schmidt MD LAB BLOOD ORDERABLES Fin al Result [facility] [address] Department [place] [address] * (ABNORMAL) Hemoglobin A1c (12/19/2023 2:02 AM CDT) Hgb A1C 6.5(H) 4.0 - 5.6 % Estimated Average Glucose 140 mg/dL [facility] Comment: The ADA recommends reporting an estimated Average Glucose (eAG) with all Hemoglobin A1c results using the equation derived from a study of 507 normal and diabetic adults. Minority populations were underrepresented and children were not included. (Diabetes Care 31:9505-8547, 2008). The eAG is not equivalent to a fasting glucose. Blood 12/19/2023 2:02 AM CDT 12/19/2023 2:02 AM CDT us Christine Hensley MD LAB BLOOD ORDERABLES Final Resul t [facility] [address] Department [place] [address] from Last 3 Months or Most Recently Relevant to Health Maintenance Insurance MEDICARE Member Subscriber Plan / Payer (Ef fective 2004-Present) Name:Flakita Abdi Member ID:[id number] Relation to Subscriber:Self Name:Flakita Abdi Subscriber ID:[id number] Payer ID:[id number] Group ID:Not on file Type:MEDICARE TRADITIONAL Address: [place] [id number] MEDICARE MEDICARE [facility] SENIOR SUPPLEMENT MEDICARE [facility] SENIOR SUPPLEMENT Advance Directives For more information, please contact: [phone] * Full Code (Latest Code Status on File) Date Activated Date Inactivated Comments 12/18/2023 9:17 PM 01/20/2024 8:51 PM * Full Code Date Activated Date Inactivated Comments 09/14/2017 8:29 PM 09/17/2017 8:39 PM Care Teams Tree Sapper Relationship Specialty Start Date End Date Yaakov Chauhan NP [address] [facility] [address] [place] [address] PCP - General Nurse Practitioner 12/21/23 Bill Franco MD [address] [facility] [address] [place] [address] Consulting Physician Cardiology 12/22/23
--- OUTSIDE RECORDS SUMMARY | 2024-05-28 04:33 | XMS_ITS | Referral Summary ---
Author Organization [facility] D Address [address] [place] [id number] Care Team Providers Care Edge Finisher Name Role Phone Yaakov Chauhan NP Primary Care Provider + [phone] Bill Franco MD Unavailable [phone] Encounters Date Type Department Care Team Description 05/23/2024 Telephone [facility] Cardiology [address] [place] [phone] Bill Franco MD 05/16/2024 10:00 AM INSTRUMENT LENS INSPECTOR Office Visit [facility] Cardiology [address] [place] [phone] Bill Franco MD Dyspnea, unspecified type (Primary Dx); Weakness; Balance disorder; Hypertension associated with diabetes (HCC); Atrial flutter, unspecified type (HCC); Type 2 diabetes mellitus with stage 3b chronic kidney disease, without long-term current use of insulin (HCC) from Last 3 Months Allergies No known active allergies Medications blood [...] 02/02/2020 Assessment & Plan (04/30/2021 2:47 PM INSTRUMENT LENS INSPECTOR): Monitor findings are most supportive of the [...] 01/26/2017 Assessment & Plan (01/26/2017 6:09 PM INSTRUMENT LENS INSPECTOR): Weight loss through calorie restriction and increased activity recommended. Morbid obesity with BMI of 40.0-44.9, adult 01/14 Assessment & Plan (02/04/2021 11:32 AM INSTRUMENT LENS INSPECTOR): She would benefit from weight loss through diet and exercise. Assessment & Plan (02/03/2020 5:47 PM INSTRUMENT LENS INSPECTOR): Would benefit from weight loss through diet and exercise. Assessment & Plan (02/28/2019 8:41 PM INSTRUMENT LENS INSPECTOR): Weight is up 9 lb since last year. Recommended weight loss through calorie restriction and increased activity. Assessment & Plan (02/01/2018 3:01 PM INSTRUMENT LENS INSPECTOR): Calorie restriction and increased activity recommended. Coronary artery disease of n ative artery of [place] heart with stable angina pectoris 01/02/2014 Overview (06/21/2016): Coronary arteriosclerosis in [place] artery Assessment & Plan (02/04/2021 11:30 AM INSTRUMENT LENS INSPECTOR): No symptoms of myocardial ischemia. Continue aspirin 81 mg daily. Myocardial perfusion study one year ago showed a very mild defect similar to that described in 2011 which turned out at that time to be a false-positive. In the absence of symptoms would not recommend cardiac catheterization. Assessment & Plan (02/03/2020 5:46 PM INSTRUMENT LENS INSPECTOR): Asymptomatic. Mild perfusion defect is similar to that described in 2010 at which time she had favorable cardiac catheterization showing it to be a false- positive. Would not investigate with cardiac catheterization. Continue aspirin. Assessment & Plan (02/28/2019 8:37 PM INSTRUMENT LENS INSPECTOR): Asymptomatic. Continue aspirin. Assessment & Plan (02/01/2018 2:59 PM INSTRUMENT LENS INSPECTOR): No symptoms of myocardial ischemia. Favorable MPI one year ago. Continue aspirin. Assessment & Plan (01/26/2017 6:09 PM INSTRUMENT LENS INSPECTOR): No symptoms of myocardial ischemia. 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 Continue anti- platelet therapy. Hypertension associated with diabetes 07/30/2013 Overview (06/19/2016): HYPERTENSION NOS Assessment & Plan (02/04/2021 11:30 AM INSTRUMENT LENS INSPECTOR): Blood pressure is well controlled on losartan HCT 100/12.5 mg daily which she should continue. Assessment & Plan (02/03/2020 5:46 PM INSTRUMENT LENS INSPECTOR): Blood pressure is adequately controlled on current regimen. No change was made. Assessment & Plan (02/28/2019 8:37 PM INSTRUMENT LENS INSPECTOR): Blood pressure is adequately controlled on current regimen. No change was made. Assessment & Plan (02/01/2018 2:59 PM INSTRUMENT LENS INSPECTOR): Blood pressure is a little elevated, possibly from high sodium diet. She is to restrict her sodium. She is seeing Dr. Danish Barrera later this month. If her blood pressure remains elevated, low-dose beta-rochelle therapy might be considered. Assessment & Plan (01/26/2017 6:09 PM INSTRUMENT LENS INSPECTOR): Blood pressure is adequately controlled on current regimen. No change was made. Hyperlipidemia associated with type 2 diabetes johnny sedacarla 07/30/2013 Overview (06/19/2016): PURE HYPERCHOLESTEROLEM Assessment & Plan (02/04/2021 11:32 AM INSTRUMENT LENS INSPECTOR): She has been treated for a long [...] 75 Assessment & Plan (02/03/2020 5:46 PM INSTRUMENT LENS INSPECTOR): On chronic lipid lowering therapy with good control. No changes made. Assessment & Plan (02/28/2019 8:40 PM INSTRUMENT LENS INSPECTOR): On chronic lipid lowering therapy with good control. No changes made. Assessment & Plan (02/01/2018 3:00 PM INSTRUMENT LENS INSPECTOR): On chronic lipid lowering therapy with good control. No changes made. Assessment & Plan (01/26/2017 6:09 PM INSTRUMENT LENS INSPECTOR): On chronic lipid lowering therapy with good control. No changes made. Type 2 diabetes mellitus 07/30/2013 Overview (06/20/2016): DMII WO CMP UNCNTRLD Social History Tobacco Use Types Packs/Day Years Used Date Smoking Tobacco: Former Cigarettes 2 18 1 1977 Smokeless Tobacco: Never Tobacco Cessation:Counseling Given: Not Answered Alcohol Use Standard Drinks/Week Comments No 0 (1 standard drink = 0.6 oz pur e alcohol) [facility] [employer] Answer Date Recorded In the past 12 months has [employer], [employer], [employer], or water [employer] threatened to shut off services in your [...] 12/21/2023 How often do you attend chur or baptist services? More than 4 times per year 12/21/2023 Do you belong to any clubs o r organizations such as restorationism groups, unions, fraternal or athletic groups, or [...] any time in the past 12 m [facility], were you homeless or living in a correction (including now)? No 12/21/2023 Personal Safety Answer Date Recorded Have you ever been in or are you currently in a harmful physical or emotional relationship or is someone making you feel afraid or unsafe? Denies 01/05/2024 Comments No Sex and Gender Information Value Date Recorded Sex Assigned at Not on file Legal Sex Female 10:42 AM INSTRUMENT LENS INSPECTOR Gender Identity Not on file Sexual Orientation Not on file Last Filed Vital Signs Vital Sign Reading Time Taken Comments Blood Pressure 108/68 05/16/2024 10:42 AM INSTRUMENT LENS INSPECTOR Pulse 71 05/16/2024 10:42 AM INSTRUMENT LENS INSPECTOR Temperature 36.6 C (97.9 F) 01/20/2024 8:13 AM INSTRUMENT LENS INSPECTOR Respiratory Rate 16 02/16/2024 9:48 AM INSTRUMENT LENS INSPECTOR Oxygen Saturation 97% 02/15/2024 2:12 PM INSTRUMENT LENS INSPECTOR Inhaled Oxygen Concentration - - Weight 87.5 kg (192 lb 12.8 oz) 025 10:42 AM INSTRUMENT LENS INSPECTOR Height 152.4 cm (5') 02/15/2024 2:12 PM INSTRUMENT LENS INSPECTOR Body Mass Index 37.65 02/15/2024 2:12 PM INSTRUMENT LENS INSPECTOR Plan of Treatment Not on file Medical Devices Implanted Type Area Band Master Device Identifier Shelf Expiration Date Model / Serial / Lot Camara Vascular System Closure Repair Femoral Artery Suture Mediated Perclose Prostyle 17619-92 - [id number] - [id number] Implanted:Qty: 1 on 01/05/2024 by Trung Barragan MD at [facility] Vascular Closure Device Right: Femoral Vein [employer] 10/13/2025 21431-11 / [id number] / [id number] Camara Vascular System Closure Repair Femoral Artery Suture Mediated Perclose Prostyle 30243-02 - [id number] - [id number] Implanted:Qty: 1 on 01/05/2024 by Trung Barragan MD at [facility] Vascular Closure Device Right: Femoral Vein [employer] 10/13/2025 00686-83 / [id number] / [id number] [employer] 6191-1-010 Simplex P Radiopaque Full Dose Cement Bone Sterile - [id number] Implanted:Qty: 1 on 09/14/2017 by Glynn Jaime MD at [facility] Left: Knee [employer] 01/14/2020 6191-1-0 10 / / [id number] [employer] [id number] Vanguard 65mm Cruciate Retaining Primary Knee Left Component - [id number] Implanted:Qty: 1 on 09/14/2017 by Glynn Jaime MD at [facility] Left: Knee [employer] [id number] 01/29/2027 [id number] / / [id number] [employer] [id number] Ascent Maxim 71mm 1 Piece Cruciate Fin Knee Tray Tibial Interlok - [id number] Implanted:Qty: 1 on 09/14/2017 by Glynn Jaime MD at [facility] Left: Knee [employer] [id number] 05/15/2027 [id number] / / [id number] [employer] 256995 Vanguard L71 Mm X H12 Mm Anterior Stabilize; Inlay Knee 0 D Beari - [id number] Implanted:Qty: 1 on 09/14/2017 by Glynn Jaime MD at [facility] Left: Knee [employer] [id number] 04/10/2022 [id number] / / [id number] [employer] Valve Mitral Tissue Stented Epic Plus 29mm [id number] - [id number] - [id number] Implanted:Qty: 1 on 01/05/2024 by Bill Schmidt MD at [facility] N/A: Mitral Valve [employer] 08/19/2027 [id number] / [id number] / Explanted Type Area Band Master Device Identifier Shelf Expiration Date Model / Serial / Lot Bard Peripheral Vascular Pledget Cardiovascular Nominal Thickness Polytetrafluoroethylene 1.65mmx1/4x1/4in [id number] - [id number] Explanted:Qty: 2 on 01/05/2024 at [facility] [employer] Peripheral V[employer] [id number] / / Procedures Procedure Name Priority Date/Time Associated Diagnosis Comments EGFR Routine 01/20/2024 12:45 AM INSTRUMENT LENS INSPECTOR LIPID PANEL Routine 01/08/2024 1:57 AM CDT HEMOGLOBIN A1C Routine 12/19/2023 2:02 AM CDT from Last 3 Months or Most Recently Relevant to Health Maintenance Results * (ABNORMAL) eGFR (01/20/2024 12:45 AM INSTRUMENT LENS INSPECTOR) eGFR 36(L) >=60 mL/min/1. 73 m2 Comment: [...] reviewed 2021. Blood 01/20/2024 12:4 5 AM INSTRUMENT LENS INSPECTOR 01/20/2024 1:10 AM INSTRUMENT LENS INSPECTOR us Claudia Whitaker NP LAB BLOOD ORDERABLES Columba gee Result [facility] [address] Department [place] [address] * (ABNORMAL) Lipid panel (01/08/2024 1:57 AM [...] revised on 2017. Triglycerides 132 <=149 mg/dL [facility] Comment: Interpretive Data Ages < or = [...] revised on 2017. HDL 35(L) >=40 mg/dL [facility] Comment: Interpretive Data Ages < or = [...] on 2017. LDL, calculated 47 <=129 mg/dL [facility] Comment: Interpretive Data Ages < or = 19 years Acceptable: <110 mg/dL Borderline high: 110-129 mg/dL High: >or= 130 mg/dL Ages > or = 20 years Optimal: <100 mg/dL Near optimal: 100-129 mg/dL Borderline high: 130-159 mg/dL High: >160 mg/dL Calculated using the Sukhjinder LDL-C estimating equation. This equation was implemented on 2023. Prior to this date LDL-C was estimated using the Friedewald equation. Literature References: 1. Expert Panel on Integrated Guidelines for Cardiovascular Health and Risk Reduction in Children and Adolescents. Pediatrics 2011;128:S213 2. NCEP Expert Panel. Circulation 2004;110:227 3. Sukhjinder Kelley et al. HARMAN Cardiol. 2020 July 14;5(5):540-548. doi: 10.1001/jamacardio.2020.0013 Current Interpretive Data was last revised on 2023. Non-HDL Cholesterol 70 mg/dL [facility] Comment: Interpretive Data Ages < or = [...] last revised on 2017. Chol/HDL ratio 3 [facility] Blood 01/08/2024 1:57 AM CDT 01/08/2024 2:19 AM CDT Bill Schmidt MD LAB BLOOD ORDERABLES Fin al Result Performing Organization Address City/[facility] Co de Phone Number [facility] [address] [place] [address] * (ABNORMAL) Hemoglobin A1c (12/19/2023 2:02 AM CDT) Hgb A1C 6.5(H) 4.0 - 5.6 % Estimated Average Glucose 140 mg/dL [facility] Comment: The ADA recommends reporting an estimated Average Glucose (eAG) with all Hemoglobin A1c results using the equation derived from a study of 507 normal and diabetic adults. Minority populations were underrepresented and children were not included. (Diabetes Care 31:2790-8232, 2008). The eAG is not equivalent to a fasting glucose. Blood 12/19/2023 2:02 AM CDT 12/19/2023 2:02 AM CDT Christine Hensley MD LAB BLOOD ORDERABLES Final Resul t Performing Organization Address City/[facility]/ZIP Co de Phone Number [facility] [address] [place] [address] from Last 3 Months or Most Recently Relevant to Health Maintenance Insurance MEDICARE MEDICARE MEDICARE [employer] SENIOR SUPPLEMENT MEDICARE [employer] SENIOR SUPPLEMENT Advance Directives For more information, please contact: [phone] * Full Code (Latest Code Status on File) Date Activated Date Inactivated Comments 12/18/2023 9:17 PM 01/20/2024 8:51 PM * Full Code Date Activated Date Inactivated Comments 09/14/2017 8:29 PM 09/17/2017 8:39 PM Care Teams Edge Finisher Relationship Specialty Start Date End Date Yaakov Chauhan NP [address] [place] [address] PCP - General Nurse Practitioner 12/21/23 Bill Franco MD [address] [place] [address] Consulting Physician Cardiology 12/22/23
--- OUTSIDE RECORDS SUMMARY | 2024-05-28 04:33 | XMS_ITS | Continuity of Care Document ---
Author Organization [facility] Address [address] [place] [address] Phone Care Team Providers Care Safety And Security Officer Name Role Phone Gus Lange MD Unavailable Unavailable Advance Directives Directive Yes / No Effective Date File Name No Information Encounters Encounter Description Practice Location Reason(s) For Visit Diagnoses Date Provider Providers Copied on Encounter [facility], [address], [place], [place], [id number], [place] tel:[phone] [facility] No Information Nazario Weber. [address] [place] [address], [facility] [address], [place], [address], [place]. tel:[phone] Family History Family Member Type Diagnosis Age At Onset No Information Payers Payer name Insurance type Covered democrat ID Authoriza titj(s) [facility] Commercial CI [id number] Social History Type Description Quantity Date Captured Comments Sex Female Smoking Status No Information Chief Complaint And Reason For Visit No Information Reason For Referral Reason For Referral No Information History Of Present Illness Encounter Date Complaint History Of Prese nt Illness No Information Functional Status Date Functional Assessmen t No Information Instructions Date Instruction Additional Infor mation No Information Assessments Type Assessment Date No Information Patient Care Teams Name Effective Dates (start - stop) Status Members No Information
--- OUTSIDE RECORDS SUMMARY | 2024-05-28 04:33 | XMS_ITS | Clinical Summary ---
Author Organization [facility] Address [address] [place] [phone] Phone Care Team Providers Care Data Deliverables Manager Name Role Phone Unavailable Primary Care Provider Unavailabl e Social History Tobacco Use Types Packs/Day Years Used Date Smoking Tobacco: Never Assessed Sex and Gender Information Value Date Recorded Sex Assigned at Not on file Gender Identity Not on file Sexual Orientation Not on file Plan of Treatment Health Maintenance Due Date Last Done Comments Pneumococcal PPSV23/PCV13 65 + Years / High and Highest Risk (1 of 4 - PCV) 10/15/1945 Diabetic Foot Exam 10/15/1949 Ophthalmology Exam 10/15/1949 Influenza Vaccine (#1) 2023
--- OUTSIDE RECORDS SUMMARY | 2024-05-28 04:33 | XMS_ITS | Continuity of Care Document ---
Author Organization [facility] Address [address] [place] [address] Phone Care Team Providers Care Yarder Name Role Phone Glynn Jaime MD Unavailable Unavailable Allergies, Adverse Reactions, Alerts Substance Reaction Status Criticality No Known Allergies Active No Inform ation Medications Medication Instructions Dosage Effective Dates (start - stop) Status Comments Percocet 5 mg-325 mg tablet take 1-2 tablet by oral route every 4-6 hours as needed for severe pain - Active [place] 5 mg-325 mg tablet take 1-2 tablet by oral route every 4-6 hours as needed for moderate pain - Active Mobic 15 mg tablet take 1 tablet by oral route every day - Active vitamin E 400 unit capsule - Active vitamin B12 1,000 mcg-folic acid 400 mcg sublingual lozenge - Active glipizide ER 5 mg tablet, extended release 24 hr - Active losartan 100 mg-hydrochlorothiazide 12.5 mg tablet - Active metformin 500 mg tablet take 1 tablet by oral route 2 times every day with morning and evening meals 500 MG - Active levothyroxine 25 mcg tablet - Active Zetia 10 mg tablet - Active pravastatin 40 mg tablet - Active multivitamin tablet - Active krill oil 300 mg-90 mg-24 mg-50 mg capsule - Active Ecotrin Low Strength 81 mg tablet,enteric coated - Active latanoprost 0.005 % eye drops instill 1 drop by ophthalmic route every day into affected eye(s) in the evening 1.00 drop - Active Co Q-10 200 mg capsule - Active omeprazole 20 mg capsule,delayed release take 1 capsule by oral route every day 30 minutes to 1 hour before a meal 20 MG - Active Procedures Procedure Date X-ray exam knee, 3 views Office/outpatient visit,est, mod 2018 X-ray exam knee, 3 views Office/outpatient visit,est, mod 2018 Global/Postop followup visit Global/Postop followup visit X-ray exam knee, 3 views Total Knee Replacement X-ray exam knee, 3 views X-ray exam knee, 4+ views Office/outpatient visit,new, mod 2017 Advance Directives Directive Yes / No Effective Date File Name No Information Encounters Encounter Description Practice Location Reason(s) For Visit Diagnoses Date Provider Providers Copied on Encounter Office/outpa tient visit,est, mod [facility], [address], [id number], [place] tel:[phone] [facility] Appointment (chief complaint) Presence of left artificial knee joint 9 Addison Maki. [address] [place] [address], [id number] , [place]. tel:[phone] Referring Provider: Glynn Bro, [address] [place] [address], [place], [address] . tel:[phone] Office/outpa tient visit,est, [facility], [address] [place] [address], [id number], [place] tel:[phone] [facility] l knee (chief complaint) Presence of left artificial knee joint 9 Addison Maki. [address] [place] [address], [address], [id number] , [place]. tel:[phone] Referring Provider: Glynn Bro, [address] [place] [address], [address] . tel:[phone] [facility], [address] [place] [address], [id number], [place] tel:[phone] [facility] l knee (chief complaint) Presence of left artificial knee joint Sep-0 4201 8 Addison Maki. [address] [facility], [address] [facility], [place], [place], [id number] , [place]. tel: [phone] Referring Provider: Glynn Bro, [address] [place] [address] [facility], [place], [address] . tel:[phone] [facility], [address] [place] [address], [place], [place], [id number], [place] tel:[phone] [facility] l knee (chief complaint) Presence of left artificial knee joint Sep-3 1 8 Addison Maki. [address] [place] [address], [address] [facility], [place], [place], [id number] , [place]. tel: [phone] Referring Provider: Glynn Bro, [address] [place] [address] [facility], [place], [address] . tel:[phone] [facility], [address] [place] [address], [id number], [place] [phone] [facility] Unilateral primary osteoarthritis, left knee Sep-0 2 8 Addison Maki. [address] [place] [address], [place] [address], [place], [place], [id number] , [place]. tel:[phone] Referring Provider: Glynn Bro, [address] [place] [address], [place], [address] . tel:[phone] [facility], [address] [place] [address], [id number], [place] [phone] [facility] No Information 2 8 Addison Maki. [address] [place] [address], [place] [address], [place], [place], [id number] , [place]. tel:[phone] [facility], [address] [place] [address], [id number], [place] [phone] [facility] Unilateral primary osteoarthritis, right knee Arun-0 8 Addison Maki. [address] [place] [address], [address], [place], [place], [id number] , . tel: [phone] Office/outpa tient visit,new, mod [facility], [address] [facility] [address] [place] [address], [id number], tel:[phone] [facility] bilat knees (chief complaint) Pain in right kneePain in left kneeUnilateral primary osteoarthritis, right kneeUnilateral primary osteoarthritis, left knee 8 Addison Maki. [address] [facility], [address], [place], [place], [id number] , [place]. tel: [phone] Referring Provider: Glynn Bro, [address] [place] [address] [facility], [place], [address] . tel:[phone] Family History Family Member Type Diagnosis Age At Onset Mother Problem (finding) Osteoarthritis Father Problem (finding) Osteoarthritis Father Problem (finding) Diabetes Payers Payer name Insurance type Covered constitution party ID Authornoela titj(s) [place] Part B [id number] [employer] [id number] Social History Type Description Quantity Date Captured Comments Alcohol Use Details Unknown Caffeine Use Details Unknown Tobacco Use Status Current non-smoker 19 Smoking Status Never smoker Sex Female Vital Signs Date / Time: Height Weight BMI Pulse Rate Blood Pressure Temperature Respiratory Rate Body Surface Area Head Circumference Head Circ. Percentile Wt./Tj. Percentile BMI percentile Pulse Ox Inhaled Ox 12:23 PM 61.00 in 96.615 kg (213.00 lbs) 40.2 5 kg/m eter (2) Chief Complaint And Reason For Visit From encounter dated '09/23/2018 11:30'. Appointment (chief complaint). Description: Patient returns to the office for her left knee. Reason For Referral Reason For Referral No Information Plan Of Treatment Date Type Action Status Referral Ordered: X-ray exam knee, 3 views LT ordered Referral Ordered: X-ray exam knee, 3 views LT knee ordered Referral Ordered: X-ray exam knee, 4+ views RT knee ordered History Of Present Illness Encounter Date Complaint History Of Prese nt Illness Appointment Patient returns to the office for her left knee. l knee patient presents to the office today for follow up left tka l knee patient presents to the office today for follow up l tka l knee patient presents to the office today for follow up l tka bilat knees patient presents to the office today for evaluation of bilat knee pain Functional Status Date Functional Assessmen t No Information Instructions Date Instruction Additional Infor mation No Information Assessments Type Assessment Date assessment Presence of left artificial knee joint Patient Care Teams Name Effective Dates (start - stop) Status Members No Information
--- NOTE | 2024-05-28 06:57 | PC.NURSE ---
Pt to triage desk stating she was feeling better and was going to go home. Pt and patient son verbalized returning to seek medical care if sx persist. pt aox4 on assessment.
--- OUTSIDE RECORDS SUMMARY | 2024-05-28 07:11 | XMS_ITS | Continuity of Care Document ---
Author Organization [facility] Address [address] [place] [address] Phone Care Team Providers Care Psychiatric Secretary Name Role Phone Gus Lange MD Unavailable Unavailable Advance Directives Directive Yes / No Effective Date File Name No Information Encounters Encounter Description Practice Location Reason(s) For Visit Diagnoses Date Provider Providers Copied on Encounter Merged with [facility], [address], [place], [place], [id number], [place] tel:[phone] [facility] No Information Nazario Weber. [address] [place] [address], [facility], [place], [address], [place]. tel:[phone] Family History Family Member Type Diagnosis Age At Onset No Information Payers Payer name Insurance type Covered constitution party ID Authoriza titj(s) [facility] Commercial CI [id number] Social History Type Description Quantity Date Captured [...]
--- OUTSIDE RECORDS SUMMARY | 2024-05-28 07:11 | XMS_ITS | Continuity of Care Document ---
Author Organization [facility] Address [address] [place] [address] Phone Care Team Providers Care Global Human Resources Director Name Role Phone Glynn Jaime MD Unavailable Unavailable Allergies, Adverse Reactions, Alerts Substance Reaction Status Criticality No Known Allergies Active No Inform ation Medications Medication Instructions Dosage Effective Dates (start - stop) Status Comments Percocet 5 mg-325 mg tablet take 1-2 tablet by oral route every 4-6 hours as needed for severe pain - Active [place] 5 mg-325 mg tablet take 1-2 tablet [...] Encounter Office/outpa tient visit,est, mod [facility], [address], [id number], [place] tel:[phone] [facility] Appointment (chief complaint) Presence of left artificial knee joint 9 Addison Maki. [address] [place] [address], [id number] , [place]. tel:[phone] Referring Provider: Glynn Bro, [address] [place] [address], [place], [address] . tel:[phone] Office/outpa tient visit,est, [facility], [address] [place] [address], [id number], [place] tel:[phone] [facility] l knee (chief complaint) Presence of left artificial knee joint 9 Addison Maki. [address] [place] [address], [address], [id number] , [place]. tel:[phone] Referring Provider: Glynn Bro, [address] [place] [address], [address] . tel:[phone] [facility], [address] [place] [address], [id number], [place] tel:[phone] [facility] l knee (chief complaint) Presence of left artificial knee joint Sep-0 4201 8 Addison Maki. [address] [facility], [address] [facility], [place], [place], [id number] , [place]. tel: [phone] Referring Provider: Glynn Bro, [address] [place] [address] Suite [facility], [place], [address] . tel:[phone] [facility], [address] [place] [address], [place], [place], [id number], [place] tel:[phone] [facility] l knee (chief complaint) Presence of left artificial knee joint Sep-3 1 8 Addison Maki. [address] [place] [address], [address] [facility], [place], [place], [id number] , [place]. tel:[phone] Referring Provider: Glynn Bro, [address] [place] [address] [address] [facility], [place], [address] . tel:[phone] [facility], [address] [place] [address], [id number], [place] [phone] [facility] Unilateral primary osteoarthritis, left knee Sep-0 2 8 Addison Maki. [address] [place] [address], [place] [address], [place], [place], [id number] , [place]. tel:[phone] Referring Provider: Glynn Bro, [address] [place] [address], [place], [address] . tel:[phone] [facility], [address] [place] [address], [id number], [place] [phone] [facility] No Information 2 8 Addison Maki. [address] [place] [address], [place] [address], [place], [place], [id number] , [place]. tel:[phone] [facility], [address] [place] [address], [id number], [place] [phone] [facility] Unilateral primary osteoarthritis, right knee Arun-0 8 Addison Maki. [address] [place] [address], [address], [place], [place], [id number] , . tel: [phone] Office/outpa tient visit,new, mod [facility], [address] [facility] [address] [place] [address], [id number], tel:[phone] [facility] bilat knees (chief complaint) Pain in right kneePain in left kneeUnilateral primary osteoarthritis, right kneeUnilateral primary osteoarthritis, left knee 8 Addison Maki. [address] [facility], [address], [place], [place], [id number] , [place]. tel: [phone] Referring Provider: Glynn Bro, [address] [place] [address] [address] [facility], [place], [address] . tel:[phone] Family History Family Member Type Diagnosis Age At Onset Mother Problem (finding) Osteoarthritis Father Problem (finding) Osteoarthritis Father Problem (finding) Diabetes Payers Payer name Insurance type Covered democrat ID Authornoela titj(s) [place] Part B [id number] [employer] [id number] Social History Type Description Quantity Date Captured Comments Alcohol Use Details Unknown Caffeine Use Details Unknown Tobacco Use Status Current non-smoker 18 Smoking Status Never smoker Sex Female Vital Signs Date / Time: Height Weight BMI Pulse Rate Blood Pressure Temperature Respiratory Rate Body Surface Area Head Circumference Head Circ. Percentile Wt./Jt. Percentile BMI percentile Pulse Ox Inhaled Ox [...]
--- OUTSIDE RECORDS SUMMARY | 2024-05-28 07:11 | XMS_ITS | Referral Summary ---
Author Organization [facility] D Address [address] [place] [id number] Care Team Providers Care Mechanical Maintenance Worker Name Role Phone Yaakov Chauhan NP Primary Care Provider [phone] Bill Franco MD Unavailable [phone] Encounters Date Type Department Care Team Description 05/23/2024 Telephone [facility] Card[facility] [address] [place] [phone] Bill Franco MD 05/16/2024 10:00 AM MACHINE STONE POLISHER Office Visit [facility] [address] [place] [phone] Bill Franco MD Dyspnea, unspecified type [...] 02/02/2020 Assessment & Plan (04/30/2021 2:47 PM MACHINE STONE POLISHER): Monitor findings are most supportive of the [...] 01/26/2017 Assessment & Plan (01/26/2017 6:09 PM MACHINE STONE POLISHER): Weight loss through calorie restriction and increased activity recommended. Morbid obesity with BMI of 40.0-44.9, adult 01/14 Assessment & Plan (02/04/2021 11:32 AM MACHINE STONE POLISHER): She would benefit from weight loss through diet and exercise. Assessment & Plan (02/03/2020 5:47 PM MACHINE STONE POLISHER): Would benefit from weight loss through diet and exercise. Assessment & Plan (02/28/2019 8:41 PM MACHINE STONE POLISHER): Weight is up 9 lb since last year. Recommended weight loss through calorie restriction and increased activity. Assessment & Plan (02/01/2018 3:01 PM MACHINE STONE POLISHER): Calorie restriction and increased activity recommended. Coronary artery disease of n ative artery of [place] heart with stable angina pectoris 01/02/2014 Overview (06/21/2016): Coronary arteriosclerosis in [place] artery Assessment & Plan (02/04/2021 11:30 AM MACHINE STONE POLISHER): No symptoms of myocardial ischemia. Continue aspirin 81 mg daily. Myocardial perfusion study one year ago showed a very mild defect similar to that described in 2011 which turned out at that time to be a false-positive. In the absence of symptoms would not recommend cardiac catheterization. Assessment & Plan (02/03/2020 5:46 PM MACHINE STONE POLISHER): Asymptomatic. Mild perfusion defect is similar to that described in 2010 at which time she had favorable cardiac catheterization showing it to be a false- positive. Would not investigate with cardiac catheterization. Continue aspirin. Assessment & Plan (02/28/2019 8:37 PM MACHINE STONE POLISHER): Asymptomatic. Continue aspirin. Assessment & Plan (02/01/2018 2:59 PM MACHINE STONE POLISHER): No symptoms of myocardial ischemia. Favorable MPI one year ago. Continue aspirin. Assessment & Plan (01/26/2017 6:09 PM MACHINE STONE POLISHER): No symptoms of myocardial ischemia. 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 Continue anti- platelet therapy. Hypertension associated with diabetes 07/30/2013 Overview (06/19/2016): HYPERTENSION NOS Assessment & Plan (02/04/2021 11:30 AM MACHINE STONE POLISHER): Blood pressure is well controlled on losartan HCT 100/12.5 mg daily which she should continue. Assessment & Plan (02/03/2020 5:46 PM MACHINE STONE POLISHER): Blood pressure is adequately controlled on current regimen. No change was made. Assessment & Plan (02/28/2019 8:37 PM MACHINE STONE POLISHER): Blood pressure is adequately controlled on current regimen. No change was made. Assessment & Plan (02/01/2018 2:59 PM MACHINE STONE POLISHER): Blood pressure is a little elevated, possibly from high sodium diet. She is to restrict her sodium. She is seeing Dr. Danish Barrera later this month. If her blood pressure remains elevated, low-dose beta-rochelle therapy might be considered. Assessment & Plan (01/26/2017 6:09 PM MACHINE STONE POLISHER): Blood pressure is adequately controlled on current regimen. No change was made. Hyperlipidemia associated with type 2 diabetes johnny sedacarla 07/30/2013 Overview (06/19/2016): PURE HYPERCHOLESTEROLEM Assessment & Plan (02/04/2021 11:32 AM MACHINE STONE POLISHER): She has been treated for a long [...] 75 Assessment & Plan (02/03/2020 5:46 PM MACHINE STONE POLISHER): On chronic lipid lowering therapy with good control. No changes made. Assessment & Plan (02/28/2019 8:40 PM MACHINE STONE POLISHER): On chronic lipid lowering therapy with good control. No changes made. Assessment & Plan (02/01/2018 3:00 PM MACHINE STONE POLISHER): On chronic lipid lowering therapy with good control. No changes made. Assessment & Plan (01/26/2017 6:09 PM MACHINE STONE POLISHER): On chronic lipid lowering therapy with good control. No changes made. Type 2 diabetes mellitus 07/30/2013 Overview (06/20/2016): DMII WO CMP UNCNTRLD Social History Tobacco Use Types Packs/Day Years Used Date Smoking Tobacco: Former Cigarettes 2 18 1 1977 Smokeless Tobacco: Never Tobacco Cessation:Counseling Given: Not Answered Alcohol Use Standard Drinks/Week Comments No 0 (1 standard drink = 0.6 oz pur e alcohol) [facility] [employer] Answer Date Recorded In the past 12 months has [facility], [employer], [employer], or water [employer] threatened to shut off services in your [...] How often do you attend chur or temple services? More than 4 times per year 12/21/2023 Do you belong to any clubs o r organizations such as latter-day groups, unions, fraternal or athletic groups, or [...] any time in the past 12 m [facility], were you homeless or living in a chcf (including now)? No 12/21/2023 Personal Safety Answer Date Recorded Have you ever been in or are you currently in a harmful physical or emotional relationship or is someone making you feel afraid or unsafe? Denies 01/05/2024 Comments No Sex and Gender Information Value Date Recorded Sex Assigned at Not on file Legal Sex Female 10:42 AM MACHINE STONE POLISHER Gender Identity Not on file Sexual Orientation Not on file Last Filed Vital Signs Vital Sign Reading Time Taken Comments Blood Pressure 108/68 05/16/2024 10:42 AM MACHINE STONE POLISHER Pulse 71 05/16/2024 10:42 AM MACHINE STONE POLISHER Temperature 36.6 C (97.9 F) 01/20/2024 8:13 AM MACHINE STONE POLISHER Respiratory Rate 16 02/16/2024 9:48 AM MACHINE STONE POLISHER Oxygen Saturation 97% 02/15/2024 2:12 PM MACHINE STONE POLISHER Inhaled Oxygen Concentration - - Weight 87.5 kg (192 lb 12.8 oz) 025 10:42 AM MACHINE STONE POLISHER Height 152.4 cm (5') 02/15/2024 2:12 PM MACHINE STONE POLISHER Body Mass Index 37.65 02/15/2024 2:12 PM MACHINE STONE POLISHER Plan of Treatment Not on file Medical Devices Implanted Type Area Engine Builder Device Identifier Shelf Expiration Date Model / Serial / Lot Camara Vascular System Closure Repair Femoral Artery Suture Mediated Perclose Prostyle 64620-43 - [id number] - [id number] Implanted:Qty: 1 on 01/05/2024 by Trung Barragan MD at [facility] Vascular Closure Device Right: Femoral Vein [employer]ara [employer] 10/13/2025 10051-36 / [id number] / [id number] Camara Vascular System Closure Repair Femoral Artery Suture Mediated Perclose Prostyle 62533-32 - [id number] - [id number] Implanted:Qty: 1 on 01/05/2024 by Trung Barragan MD at [facility] Vascular Closure Device Right: Femoral Vein Camara Vascular 10/13/2025 15407-56 / [id number] / [id number] [employer] 6191-1-010 Simplex P Radiopaque Full Dose Cement Bone Sterile - [id number] Implanted:Qty: 1 on 09/14/2017 by Glynn Jaime MD at [facility] Left: Knee [employer] 01/14/2020 6191-1-0 10 / / [id number] [employer] [id number] Vanguard 65mm Cruciate Retaining Primary Knee Left Component - [id number] Implanted:Qty: 1 on 09/14/2017 by Glynn Jaime MD at [facility] Left: Knee [employer] [id number] 01/29/2027 [id number] / / [id number] [employer] [id number] Ascent Maxim 71mm 1 Piece Cruciate Fin Knee Tray Tibial Interlok - [id number] Implanted:Qty: 1 on 09/14/2017 by Glynn Jaime MD at [facility] Left: Knee [employer] [id number] 05/15/2027 [id number] / / [id number] [employer] [id number] Vanguard L71 Mm X H12 Mm Anterior Stabilize; Inlay Knee 0 D Beari - [id number] Implanted:Qty: 1 on 09/14/2017 by Glynn Jaime MD at [facility] Left: Knee [employer] [id number] 04/10/2022 [id number] / / [id number] [employer] Valve Mitral Tissue Stented Epic Plus 29mm R576-18e-86 - [id number] - [id number] Implanted:Qty: 1 on 01/05/2024 by Bill Schmidt MD at [facility] N/A: Mitral Valve [employer] 08/19/2027 [id number] / [id number] / Explanted Type Area Engine Builder Device Identifier Shelf Expiration Date Model / Serial / Lot Bard Peripheral Vascular Pledget Cardiovascular Nominal Thickness Polytetrafluoroethylene 1.65mmx1/4x1/4in 800083 - [id number] Explanted:Qty: 2 on 01/05/2024 at [facility] Bard Peripheral Vascular [id number] / / Procedures Procedure Name Priority Date/Time Associated Diagnosis Comments EGFR Routine 01/20/2024 12:45 AM MACHINE STONE POLISHER LIPID PANEL Routine 01/08/2024 1:57 AM CDT HEMOGLOBIN A1C Routine 12/19/2023 2:02 AM CDT from Last 3 Months or Most Recently Relevant to Health Maintenance Results * (ABNORMAL) eGFR (01/20/2024 12:45 AM MACHINE STONE POLISHER) eGFR 36(L) >=60 mL/min/1. 73 m2 Comment: [...] reviewed 2021. Blood 01/20/2024 12:4 5 AM MACHINE STONE POLISHER 01/20/2024 1:10 AM MACHINE STONE POLISHER us Claudia Whitaker NP LAB BLOOD ORDERABLES Columba gee Result [facility] [address] Department [place] [address] * (ABNORMAL) Lipid panel (01/08/2024 1:57 AM [...] revised on 2017. Triglycerides 132 <=149 mg/dL [facility] Comment: Interpretive Data Ages < or = [...] revised on 2017. HDL 35(L) >=40 mg/dL [facility] Comment: Interpretive Data Ages < or = [...] on 2017. LDL, calculated 47 <=129 mg/dL [facility] Comment: Interpretive Data Ages < or = [...] revised on 2023. Non-HDL Cholesterol 70 mg/dL [facility] Comment: Interpretive Data Ages < or = [...] last revised on 2017. Chol/HDL ratio 3 [facility] Blood 01/08/2024 1:57 AM CDT 01/08/2024 2:19 AM CDT Bill Schmidt MD LAB BLOOD ORDERABLES Fin al Result Performing Organization Address City/[facility] Co de Phone Number [facility] [address] [place] [address] * (ABNORMAL) Hemoglobin A1c (12/19/2023 2:02 AM CDT) Hgb A1C 6.5(H) 4.0 - 5.6 % Estimated Average Glucose 140 mg/dL [facility] Comment: The ADA recommends reporting an estimated Average Glucose (eAG) with all Hemoglobin A1c results using the equation derived from a study of 507 normal and diabetic adults. Minority populations were underrepresented and children were not included. (Diabetes Care 31:6266-3820, 2008). The eAG is not equivalent to a fasting glucose. Blood 12/19/2023 2:02 AM CDT 12/19/2023 2:02 AM CDT Christine Hensley MD LAB BLOOD ORDERABLES Final Resul t Performing Organization Address City/[facility]/ZIP Co de Phone Number [facility] [address] [place] [address] from Last 3 Months or Most Recently Relevant to Health Maintenance Insurance MEDICARE MEDICARE MEDICARE [employer] SENIOR SUPPLEMENT MEDICARE [employer] SENIOR SUPPLEMENT Advance Directives For more information, please contact: [phone] * Full Code (Latest Code Status on File) Date Activated Date Inactivated Comments 12/18/2023 9:17 PM 01/20/2024 8:51 PM * Full Code Date Activated Date Inactivated Comments 09/14/2017 8:29 PM 09/17/2017 8:39 PM Care Teams Mechanical Maintenance Worker Relationship Specialty Start Date End Date Yaakov Chauhan NP [address] [place] [address] PCP - General Nurse Practitioner 12/21/23 Bill Franco MD [address] [place] [address] Consulting Physician Cardiology 12/22/23
--- OUTSIDE RECORDS SUMMARY | 2024-05-28 07:11 | XMS_ITS | Clinical Summary ---
Author Organization [facility] Romelia lei Address [address] [place] [id number] Phone Care Team Providers Care Bilingual Loan Processor Name Role Phone Unavailable Primary Care Provider [...]
--- OUTSIDE RECORDS SUMMARY | 2024-05-28 07:11 | XMS_ITS | Clinical Summary ---
Author Organization [facility] D Address [address] [place] [address] Care Team Providers Care Poured Pipe Maker Name Role Phone Yaakov Chauhan NP Primary Care Provider [phone] Bill Franco MD Unavailable [phone] Allergies No known active allergies Medications blood [...] 02/02/2020 Assessment & Plan (04/30/2021 2:47 PM PENSION EXAMINER): Monitor findings are most supportive of the [...] 01/26/2017 Assessment & Plan (01/26/2017 6:09 PM PENSION EXAMINER): Weight loss through calorie restriction and increased activity recommended. Morbid obesity with BMI of 40.0-44.9, adult 01/14 Assessment & Plan (02/04/2021 11:32 AM PENSION EXAMINER): She would benefit from weight loss through diet and exercise. Assessment & Plan (02/03/2020 5:47 PM PENSION EXAMINER): Would benefit from weight loss through diet and exercise. Assessment & Plan (02/28/2019 8:41 PM PENSION EXAMINER): Weight is up 9 lb since last year. Recommended weight loss through calorie restriction and increased activity. Assessment & Plan (02/01/2018 3:01 PM PENSION EXAMINER): Calorie restriction and increased activity recommended. Coronary artery disease of n ative artery of [place] heart with stable angina pectoris 01/02/2014 Overview (06/21/2016): Coronary arteriosclerosis in [place] artery Assessment & Plan (02/04/2021 11:30 AM PENSION EXAMINER): No symptoms of myocardial ischemia. Continue aspirin 81 mg daily. Myocardial perfusion study one year ago showed a very mild defect similar to that described in 2011 which turned out at that time to be a false-positive. In the absence of symptoms would not recommend cardiac catheterization. Assessment & Plan (02/03/2020 5:46 PM PENSION EXAMINER): Asymptomatic. Mild perfusion defect is similar to that described in 2010 at which time she had favorable cardiac catheterization showing it to be a false- positive. Would not investigate with cardiac catheterization. Continue aspirin. Assessment & Plan (02/28/2019 8:37 PM PENSION EXAMINER): Asymptomatic. Continue aspirin. Assessment & Plan (02/01/2018 2:59 PM PENSION EXAMINER): No symptoms of myocardial ischemia. Favorable MPI one year ago. Continue aspirin. Assessment & Plan (01/26/2017 6:09 PM PENSION EXAMINER): No symptoms of myocardial ischemia. 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 Continue anti- platelet therapy. Hypertension associated with diabetes 07/30/2013 Overview (06/19/2016): HYPERTENSION NOS Assessment & Plan (02/04/2021 11:30 AM PENSION EXAMINER): Blood pressure is well controlled on losartan HCT 100/12.5 mg daily which she should continue. Assessment & Plan (02/03/2020 5:46 PM PENSION EXAMINER): Blood pressure is adequately controlled on current regimen. No change was made. Assessment & Plan (02/28/2019 8:37 PM PENSION EXAMINER): Blood pressure is adequately controlled on current regimen. No change was made. Assessment & Plan (02/01/2018 2:59 PM PENSION EXAMINER): Blood pressure is a little elevated, possibly from high sodium diet. She is to restrict her sodium. She is seeing Dr. Danish Barrera later this month. If her blood pressure remains elevated, low-dose beta-rochelle therapy might be considered. Assessment & Plan (01/26/2017 6:09 PM PENSION EXAMINER): Blood pressure is adequately controlled on current regimen. No change was made. Hyperlipidemia associated with type 2 diabetes johnny logan 07/30/2013 Overview (06/19/2016): PURE HYPERCHOLESTEROLEM Assessment & Plan (02/04/2021 11:32 AM PENSION EXAMINER): She has been treated for a long [...] 75 Assessment & Plan (02/03/2020 5:46 PM PENSION EXAMINER): On chronic lipid lowering therapy with good control. No changes made. Assessment & Plan (02/28/2019 8:40 PM PENSION EXAMINER): On chronic lipid lowering therapy with good control. No changes made. Assessment & Plan (02/01/2018 3:00 PM PENSION EXAMINER): On chronic lipid lowering therapy with good control. No changes made. Assessment & Plan (01/26/2017 6:09 PM PENSION EXAMINER): On chronic lipid lowering therapy with good control. No changes made. Type 2 diabetes mellitus 07/30/2013 Overview (06/20/2016): DMII WO CMP UNCNTRLD Encounters Date Type Department Care Team Description 05/23/2024 Telephone [facility] Cardiology [address] [place] [address] [address] [place] [address] Bill Franco MD 05/16/2024 10:00 AM PENSION EXAMINER Office Visit [facility] Cardiology [address] [place] [address] [address] [place] [address] Bill Franco MD Dyspnea, unspecified [...] drink = 0.6 oz pur e alcohol) [facility] Utilities Answer Date Recorded In the past 12 months has th e electric, gas, oil, or water [employer] threatened to shut off services in your [...] often do you attend chur ch or scientology services? More than 4 times per year 12/21/2023 Do you belong to any clubs o r organizations such as sabianism groups, unions, fraternal or athletic groups, or [...] any time in the past 12 m [facility], were you homeless or living in a [...] on file Legal Sex Female 10:42 AM PENSION EXAMINER Gender Identity Not on file Sexual Orientation Not on file Obstetrics History Last Filed Vital Signs Vital Sign Reading Time Taken Comments Blood Pressure 108/68 05/16/2024 10:42 AM PENSION EXAMINER Pulse 71 05/16/2024 10:42 AM PENSION EXAMINER Temperature 36.6 C (97.9 F) 01/20/2024 8:13 AM PENSION EXAMINER Respiratory Rate 16 02/16/2024 9:48 AM PENSION EXAMINER Oxygen Saturation 97% 02/15/2024 2:12 PM PENSION EXAMINER Inhaled Oxygen Concentration - - Weight 87.5 kg (192 lb 12.8 oz) 025 10:42 AM PENSION EXAMINER Height 152.4 cm (5') 02/15/2024 2:12 PM PENSION EXAMINER Body Mass Index 37.65 02/15/2024 2:12 PM PENSION EXAMINER Plan of Treatment Health Maintenance Due Date [...] history exists Medical Devices Implanted Type Area Candle Pourer Device Identifier Shelf Expiration Date Model / Serial / Lot Camara Vascular System Closure Repair Femoral Artery Suture Mediated Perclose Prostyle 15115-27 - [id number] - [id number] Implanted:Qty: 1 on 01/05/2024 by Trung Barragan MD at [facility] Vascular Closure Device Right: Femoral Vein [employer] 10/13/2025 22170-93 / [id number] / [id number] Camara Vascular System Closure Repair Femoral Artery Suture Mediated Perclose Prostyle 94338-28 - [id number] - [id number] Implanted:Qty: 1 on 01/05/2024 by Trung Barragan MD at [facility] Vascular Closure Device Right: Femoral Vein [employer] V[employer] 10/13/2025 70852-62 / [id number] / [id number] [employer] 6191-1-010 Simplex P Radiopaque Full Dose Cement Bone Sterile - [id number] Implanted:Qty: 1 on 09/14/2017 by Glynn Jaime MD at [facility] Left: Knee [employer] 01/14/2020 6191-1-0 10 / / [id number] [employer] [id number] Vanguard 65mm Cruciate Retaining Primary Knee Left Component - [id number] Implanted:Qty: 1 on 09/14/2017 by Glynn Jaime MD at [facility] Left: Knee [employer] [id number] 01/29/2027 [id number] / / [id number] [employer] 068805 Ascent Maxim 71mm 1 Piece Cruciate Fin Knee Tray Tibial Interlok - [id number] Implanted:Qty: 1 on 09/14/2017 by Glynn Jaime MD at [facility] Left: Knee [employer] [id number] 05/15/2027 [id number] / / [id number] [employer] 565158 Vanguard L71 Mm X H12 Mm Anterior Stabilize; Inlay Knee 0 D Beari - [id number] Implanted:Qty: 1 on 09/14/2017 by Glynn Jaime MD at [facility] Left: Knee [employer] [id number] 04/10/2022 [id number] / / [id number] [employer] Valve Mitral Tissue Stented Epic Plus 29mm E471-76t-53 - [id number] - [id number] Implanted:Qty: 1 on 01/05/2024 by Bill Schmidt MD at [facility] N/A: Mitral Valve [employer] 08/19/2027 H635-90G / [id number] / Explanted Type Area Candle Pourer Device Identifier Shelf Expiration Date Model / Serial / Lot Bard Peripheral Vascular Pledget Cardiovascular Nominal Thickness Polytetrafluoroethylene 1.65mmx1/4x1/4in [id number] - [id number] Explanted:Qty: 2 on 01/05/2024 at [facility] [employer] Peripheral Vascular [id number] / / Procedures Procedure Name Priority Date/Time Associated Diagnosis Comments EGFR Routine 01/20/2024 12:45 AM PENSION EXAMINER LIPID PANEL Routine 01/08/2024 1:57 AM CDT HEMOGLOBIN A1C Routine 12/19/2023 2:02 AM CDT from Last 3 Months or Most Recently Relevant to Health Maintenance Results * (ABNORMAL) eGFR (01/20/2024 12:45 AM PENSION EXAMINER) eGFR 36(L) >=60 mL/min/1. 73 m2 Comment: [...] reviewed 2021. Blood 01/20/2024 12:4 5 AM PENSION EXAMINER 01/20/2024 1:10 AM PENSION EXAMINER us Claudia Whitaker BLOW MOLD MACHINE OPERATOR LAB BLOOD ORDERABLES Columba gee Result [facility] [address] Department [place] [address] * (ABNORMAL) Lipid panel (01/08/2024 [...] revised on 2017. Triglycerides 132 <=149 mg/dL [facility] Comment: Interpretive Data Ages < or = [...] revised on 2017. HDL 35(L) >=40 mg/dL [facility] Comment: Interpretive Data Ages < or = [...] on 2017. LDL, calculated 47 <=129 mg/dL [facility] Comment: Interpretive Data Ages < or = [...] revised on 2023. Non-HDL Cholesterol 70 mg/dL [facility] Comment: Interpretive Data Ages < or = [...] last revised on 2017. Chol/HDL ratio 3 [facility] Blood 01/08/2024 1:57 AM CDT 01/08/2024 2:19 AM CDT us Bill Schmidt MD LAB BLOOD ORDERABLES Fin al Result [facility] [address] Department [place] [address] * (ABNORMAL) Hemoglobin A1c (12/19/2023 2:02 AM CDT) Hgb A1C 6.5(H) 4.0 - 5.6 % Estimated Average Glucose 140 mg/dL [facility] Comment: The ADA recommends reporting an estimated Average Glucose (eAG) with all Hemoglobin A1c results using the equation derived from a study of 507 normal and diabetic adults. Minority populations were underrepresented and children were not included. (Diabetes Care 31:8069-8185, 2008). The eAG is not equivalent to a fasting glucose. Blood 12/19/2023 2:02 AM CDT 12/19/2023 2:02 AM CDT us Christine Hensley MD LAB BLOOD ORDERABLES Final Resul t [facility] [address] Department [place] [address] from Last 3 Months or Most Recently Relevant to Health Maintenance Insurance MEDICARE Member Subscriber Plan / Payer (Ef fective 2004-Present) Name:Flakita Abdi Member ID:[id number] Relation to Subscriber:Self Name:Flakita Abdi Subscriber ID:[id number] Payer ID:[id number] Group ID:Not on file Type:MEDICARE TRADITIONAL Address: [place] [id number] MEDICARE MEDICARE [facility] SENIOR SUPPLEMENT MEDICARE [facility] SENIOR SUPPLEMENT Advance Directives For more information, please contact: [phone] * Full Code (Latest Code Status on File) Date Activated Date Inactivated Comments 12/18/2023 9:17 PM 01/20/2024 8:51 PM * Full Code Date Activated Date Inactivated Comments 09/14/2017 8:29 PM 09/17/2017 8:39 PM Care Teams Poured Pipe Maker Relationship Specialty Start Date End Date Yaakov Chauhan NP [address] [facility] [address] [place] [address] PCP - General Nurse Practitioner 12/21/23 Bill Franco MD [address] [facility] [address] [place] [address] Consulting Physician Cardiology 12/22/23
== END 2024-05-28 08:01 | disposition left against medical advice (07) ==
PROVIDERS: PCP Internal Medicine
DX: R06.02 Shortness of breath (principal)
CPT/HCPCS: 99199